=== PATIENT | female | born 1950 | race Caucasian/White ===

== ENCOUNTER 2016-09-09 07:44 | Day surgery (SDC) | payer MEDICARE, OTHER, SELFPAY ==
[~2016-09-09 07:44] MED LIST: Lactated Ringers 1,000 ML IV SCH
[2016-09-09] MEDS ORDERED: Propofol 200 MG/20 ML SDV ONE (10:03)
[2016-09-09] MEDS ORDERED: fentaNYL 100 MCG/2 ML SDV ONE (10:03)
[2016-09-09] MEDS ORDERED: Ondansetron 4 MG/2 ML SDV ONE (10:05)
[2016-09-09] MEDS ORDERED: Dexamethasone 10 MG/ML SDV ONE (10:05)
[2016-09-09 12:29] VITALS: BP 108/63
--- NOTE | 2016-09-09 13:52 | OR ---
DATE OF SURGERY: 09/09/2016. REFERRING PROVIDER: Yin Perez PA-C. PRE-OPERATIVE DIAGNOSES: 1. Positive FIT stool card. Last colonoscopy was 2005 in [place]. No known family history of colon cancer or colon polyps. 2. History of chronic constipation as well as hemorrhoids. POST-OPERATIVE DIAGNOSES: 1. An 8 mm sessile polyp at 95 cm removed with 2 passes of the hot snare. 2. Redundant colon. 3. Moderate hemorrhoids, not acutely inflamed. PROCEDURE: Colonoscopy with polypectomy x1 using hot snare. SURGEON: Gerry Domínguez M.D. ANESTHESIA: Monitored anesthesia care. BOWEL PREP: Good. DESCRIPTION OF OPERATION: Arianna is a 66-year-old female. The patient was brought to the endoscopy suite after discussing risks and benefits of the procedure. Informed consent was obtained for conscious sedation and colonoscopy with or without biopsy and/or polypectomy. We also discussed possibility of missed lesions. Pre-procedure exam was unremarkable. IV, oxygen, and monitors were placed. The patient was placed in the left lateral decubitus position. Sedation was administered and a digital rectal exam was performed and was remarkable for some external hemorrhoidal skin tags. Colonoscope was passed in the rectum slowly advanced all the way to the cecum. The patient did have redundant colon which was somewhat floppy. The cecum was viewed and photographed. The colonoscope was slowly withdrawn and the mucosa was closed observed in a direct circumferential manner. Ascending colon, near hepatic flexure was remarkable for an 8 mm sessile polyp at around 95 cm. This was removed with 2 passes of the hot snare. The transverse colon was unremarkable. Descending colon was unremarkable. Sigmoid colon was unremarkable. Retroflexion was performed. Rectal mucosa did reveal some moderate hemorrhoids internally, not acutely inflamed. Scope was removed. The patient tolerated the procedure well. The patient was monitored until that baseline status. Discharge instructions were reviewed and the patient was discharged in good condition. COMPLICATIONS: None. TOTAL TIME: 22 minutes. ESTIMATED BLOOD LOSS: None. RECOMMENDATIONS/FOLLOW-UP: We will await the results of path report to determine ideal followup interval. I will have the patient hold her aspirin for 3 days to limit any chance of bleeding. I would like to kindly thank Yin Perez PA-C for this referral. DMB: 09/09/2016 10:50:46 MODL: 09/09/2016 12:04:11 /[id number]
== END 2016-09-09 12:43 | disposition home or self-care (01) ==
LOC: VM.SDS 07:44
PROVIDERS: ATTEND Family Medicine
DX: D12.2 Benign neoplasm of ascending colon (principal); K64.8 Other hemorrhoids; Q43.8 Other specified congenital malformations of intestine; K64.4 Residual hemorrhoidal skin tags; K59.09 Other constipation; I10 Essential (primary) hypertension; I25.10 Atherosclerotic heart disease of native coronary artery without angina pectoris; E78.5 Hyperlipidemia, unspecified; K21.9 Gastro-esophageal reflux disease without esophagitis; G35 Multiple sclerosis; E78.00 Pure hypercholesterolemia, unspecified; E87.6 Hypokalemia; H61.23 Impacted cerumen, bilateral; N39.46 Mixed incontinence; Z79.899 Other long term (current) drug therapy; Z98.890 Other specified postprocedural states; Z88.8 Allergy status to other drugs, medicaments and biological substances
CPT/HCPCS: 00810; 45385; J1100; J2405; J2704; J3010; J7120; 88305

== ENCOUNTER 2017-07-07 00:43 | Observation (INO) | payer MEDICARE, OTHER ==
[2017-07-07] MEDS ORDERED: Diazepam 5 MG Tab PO ONE (01:05)
[2017-07-07] MEDS ORDERED: methylPREDNISolone Sodium Succinate 125 MG/2 ML SDV IVPUSH ONE (01:05)
[2017-07-07 02:05] LABS: CHLORIDE,CL 106 mmol/L (98-107); SODIUM,NA 130 mmol/L (136-145)
[2017-07-07] MEDS ORDERED: Potassium Chloride 20 MEQ Tab.ER PO ONE (02:06)
[2017-07-07] MEDS ORDERED: Potassium Chloride/Sodium Chloride Tab PO ONE (02:22)
[2017-07-07] MEDS ORDERED: Sodium Chloride 0.9% 1,000 ML IV SCH (02:30)
[2017-07-07] MEDS ORDERED: Diazepam 5 MG Tab PO PRN (08:09)
[2017-07-07] MEDS ORDERED: Morphine 2 MG/ML Syringe IVPUSH PRN (08:10)
[2017-07-07] MEDS ORDERED: CLONAZEPAM PO PRN (08:11)
[2017-07-07] MEDS ORDERED: Loperamide 2 MG Cap PO PRN (08:11)
[2017-07-07] MEDS ORDERED: PHYTONADIONE PO PRN (08:11)
[2017-07-07] MEDS ORDERED: Acetaminophen/Diphenhydramine 500-25 MG Tab PO PRN (08:11)
[2017-07-07] MEDS ORDERED: traMADol 50 MG Tab PO PRN (08:11)
[2017-07-07] MEDS ORDERED: Losartan 50 MG Tab (OWN SUPPLY) PO SCH (08:15)
[2017-07-07] MEDS ORDERED: VITAMIN B COMPLEX PO SCH (08:15)
[2017-07-07] MEDS ORDERED: methylPREDNISolone Sodium Succinate 40 MG/1 ML SDV IVPUSH SCH (08:15)
[2017-07-07] MEDS ORDERED: ZINC 50 MG PO SCH (08:15)
[2017-07-07] MEDS ORDERED: UBIDECARENONE PO SCH (08:15)
[2017-07-07] MEDS ORDERED: Famotidine 20 MG Tab PO SCH (08:15)
[2017-07-07] MEDS ORDERED: COD LIVER OIL PO SCH (08:15)
[2017-07-07] MEDS ORDERED: Non-Formulary Medication 1 Each (Krill Oil [Krill Oil] 500 MG) PO SCH (08:15)
--- NOTE | 2017-07-07 08:35 | EDM.PDOC ---
ED HPI GENERAL MEDICAL PROBLEM - General Chief Complaint: Lower Extremity Injury/Pain Stated Complaint: Right leg pain Time Seen by Provider: 07/07/17 00:50 Source of Information: Reports: Patient, Family History Limitations: Reports: No Limitations - History of Present Illness INITIAL COMMENTS - FREE TEXT/NARRATIVE: Patient reports that she began to have painful spasms to her right leg. She was in the bathroom transfering from the toilet to her wheelchair when she began to have them. EMS was called. She was given morphine on the way over. Saline lock is in. She denies that this has happened in the past to her. She has a long history of MS and is in a wheelchair. She has little use of her legs at this point in the disease process. She denies chest pain, headache, shortness of breath, altered level of consciousness, abdominal pain. Onset: Sudden Onset Date: 07/07/17 Onset Time: 00:00 Duration: Intermittent Location: Reports: Lower Extremity, Right Quality: Reports: Sharp, Throbbing Severity: Moderate Improves with: Reports: Heat Therapy, Medication Worsens with: Reports: Movement Associated Symptoms: Reports: No Other Symptoms Right Leg Pain Score (Numeric/FACES): 2 - Related Data Allergies Allergy/AdvReac Type Severity Reaction Status Date / Time NOEL Inhibitors Allergy Cough Verified 07/07/17 00:58 aspirin Allergy Bleeding Verified 07/07/17 00:58 Home Meds: Home Meds Acetaminophen [Tylenol Extra Strength] 1,000 mg PO BEDTIME 01/03/16 [History] Acetaminophen/Diphenhydramine [Tylenol Pm Ex-Strength Caplet] 1 tab PO BEDTIME PRN 01/03/16 [History] Ascorbic Acid [Vitamin C] 250 mg PO BID 01/03/16 [History] Baclofen [Lioresal] 20 mg PO TID 01/03/16 [History] Cholecalciferol (Vitamin D3) [Vitamin D3] 4,000 unit PO DAILY 01/03/16 [History] Cod Liver Oil 2 cap PO TID 01/03/16 [History] Famotidine [Pepcid] 20 mg PO DAILY 01/03/16 [History] Furosemide [Lasix] 80 mg PO BID 01/03/16 [History] Loperamide HCl [Imodium A-D] 2 mg PO ASDIRECTED PRN 01/03/16 [History] Losartan [Cozaar] 50 mg PO DAILY 01/03/16 [History] Naproxen Sodium [Aleve] 220 mg PO ASDIRECTED PRN 01/03/16 [History] Phytonadione [Mephyton] 10 mg PO ASDIRECTED PRN 01/03/16 [History] Potassium Chloride 20 meq PO QID 01/03/16 [History] Pravastatin Sodium 80 mg PO DAILY 01/03/16 [History] Prednisone [IJD: Prednisone] 10 mg PO DAILY 01/03/16 [History] Ubidecarenone [Co Q-10] 10 mg PO DAILY 01/03/16 [History] Zinc 50 mg PO DAILY 01/03/16 [History] clonazePAM [Clonazepam] 1.5 - 2 mg PO BEDTIME PRN 01/03/16 [History] traMADol HCl [Tramadol HCl] 50 mg PO Q6H PRN 01/03/16 [History] B1/B2/Niacin/B12/Protease [B-Complex with B-12 Tablet] 1 tab PO DAILY 07/07/17 [ History] Krill Oil 500 mg PO BID 07/07/17 [History] Non-Formulary Medication [NF Drug] 2 cap PO DAILY 07/07/17 [History] Non-Formulary Medication [NF Drug] 10 mg PO TID 07/07/17 [History] Past Medical History HEENT History: Reports: Cataract Cardiovascular History: Reports: High Cholesterol, Hypertension, Other (See Below) Other Cardiovascular History: hypokalemia Respiratory History: Reports: Other (See Below) Genitourinary History: Reports: Urinary Incontinence 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: Musculoskeletal History: Reports: Osteoporosis, Other (See Below) Other Musculoskeletal History: bursitis Neurological History: Reports: MS Psychiatric History: Reports: Other (See Below) Other Psychiatric History: sleep disorder Endocrine/Metabolic History: Reports: Diabetes, Type II - Past Surgical History HEENT Surgical History: Reports: Cataract Surgery, Tonsillectomy GI Surgical History: Reports: Cholecystectomy, Colonoscopy Musculoskeletal Surgical History: Reports: Shoulder Surgery Oncologic Surgical History: Reports: Lumpectomy Social & Family History - Tobacco Use Smoking Status *Q: Former Smoker Years of Tobacco use: 14 Used Tobacco, but Quit: Yes Month/Year Tobacco Last Used: 33 years ago - Caffeine Use Caffeine Use: Reports: Coffee, Tea - Recreational Drug Use Recreational Drug Use: No Review of Systems - Review of Systems Review Of Systems: See Below Constitutional: Reports: No Symptoms Eyes: Reports: No Symptoms Ears: Reports: No Symptoms Nose: Reports: No Symptoms Mouth/Throat: Reports: No Symptoms Respiratory: Reports: No Symptoms Cardiovascular: Reports: No Symptoms GI/Abdominal: Reports: No Symptoms Genitourinary: Reports: No Symptoms Musculoskeletal: Reports: Leg Pain Skin: Reports: No Symptoms Neurological: Reports: No Symptoms Psychiatric: Reports: No Symptoms ED EXAM, GENERAL - Physical Exam Exam: See Below Free Text/Narrative:: PLEASE USE ER NOTE FOR ADMISSION H AND P. Exam Limited By: No Limitations General Appearance: Alert, WD/WN, Moderate Distress Eye Exam: Bilateral Eye: EOMI, Normal Inspection, PERRL Ears: Normal TMs Nose: Normal Inspection, Normal Mucosa, No Blood Throat/Mouth: Normal Inspection, Normal Lips, Normal Teeth, Normal Gums, Normal Oropharynx, Normal Voice, No Airway Compromise Head: Atraumatic, Normocephalic Neck: Normal Inspection, Supple, Non-Tender, Full Range of Motion Respiratory/Chest: No Respiratory Distress, Lungs Clear, Normal Breath Sounds, No Accessory Muscle Use, Chest Non-Tender Cardiovascular: Normal Peripheral Pulses, Regular Rate, Rhythm, No Edema, No Gallop, No JVD, No Murmur, No Rub Peripheral Pulses: 2+: Posterior Tibial (L), Posterior Tibial (R), Dorsalis Pedis (L), Dorsalis Pedis (R) GI/Abdominal: Normal Bowel Sounds, Soft, Non-Tender, No Organomegaly, No Distention, No Abnormal Bruit, No Mass Back Exam: Normal Inspection, Full Range of Motion, NT Extremities: Normal Capillary Refill, Pedal Edema, Leg Pain, Limited Range of Motion, Other (right leg is tender laterally from mid quad to hip, muscles are palpably tight) Neurological: Alert, Oriented, CN II-XII Intact, Normal Cognition, Normal Gait, Normal Reflexes, No Motor/Sensory Deficits Psychiatric: Normal Affect, Normal Mood Skin Exam: Warm, Dry, Intact, Normal Color, No Rash Lymphatic: No Adenopathy Course - Vital Signs Last Recorded V/S: Last Vital Signs Temp 36.7 C 07/07/17 06:00 Pulse 79 07/07/17 06:00 Resp 18 07/07/17 06:00 BP 109/59 L 07/07/17 06:00 Pulse Ox 94 L 07/07/17 06:00 - Orders/Labs/Meds Orders: Active Orders 24 hr Category Date Time Status Patient Status [ADT] Routine ADT 07/07/17 02:29 Active Sodium Chloride 0.9% [Normal Saline] 1,000 ml Med 07/07/17 02:30 Active IV ASDIRECTED Medication Orders Acetaminophen (Tylenol Extra Strength) 1,000 mg PO BEDTIME IVAN Acetaminophen/Diphenhydramine HCl (Tylenol Pm Extra Strength) tab PO BEDTIME PRN PRN Reason: Sleep Diazepam (Valium.) 5 mg PO TID PRN PRN Reason: Muscle Spasm Famotidine (Pepcid) 20 mg PO DAILY IVAN Furosemide (Lasix) 80 mg PO BID IVAN Sodium Chloride (Normal Saline) 1,000 mls @ 50 mls/hr IV ASDIRECTED IVAN Last Admin: 07/07/17 02:45 Dose: 50 mls/hr Losartan Potassium (Cozaar) 50 mg PO DAILY IVAN Methylprednisolone Sodium Succinate (Solu-Medrol) 40 mg IVPUSH DAILY IVAN Morphine Sulfate (Morphine) 2 mg IVPUSH Q2H PRN PRN Reason: Pain Non-Formulary Medication (Ascorbic Acid [Vitamin C]) 250 mg PO BID IVAN Non-Formulary Medication (Baclofen [Lioresal]) 20 mg PO TID IVAN Non-Formulary Medication (Cholecalciferol (Vitamin D3) [Vitamin D3]) 4,000 unit PO DAILY IVAN Non-Formulary Medication (Clonazepam [Clonazepam]) 2 mg PO BEDTIME PRN PRN Reason: Sleep Non-Formulary Medication (Cod Liver Oil [Cod Liver Oil]) 1 each PO DAILY IVAN Non-Formulary Medication (Fish Oil/Dha/Epa [Fish Oil 1,200 Mg]) 2 each PO TID IVAN Non-Formulary Medication (Krill Oil [Krill Oil]) 500 mg PO BID IVAN Non-Formulary Medication (Loperamide Hcl [Imodium A-D]) 2 mg PO ASDIRECTED PRN PRN Reason: Diarrhea Non-Formulary Medication (Naproxen Sodium [Aleve]) 220 mg PO BID PRN PRN Reason: Pain Non-Formulary Medication (Phytonadione) 10 mg PO DAILY PRN PRN Reason: Pain Non-Formulary Medication (Pravastatin Sodium [Pravastatin Sodium]) 80 mg PO DAILY IVAN Non-Formulary Medication (Ubidecarenone [Co Q-10]) 10 mg PO DAILY IVAN Non-Formulary Medication (Vitamin B Complex [Vitamin B Complex]) 1 each PO DAILY IVAN Non-Formulary Medication (Zinc [Zinc]) 50 mg PO DAILY [facility] Potassium Chloride (Klor-Con M20) meq PO QID IVAN Tramadol HCl (Ultram) mg PO Q6H PRN PRN Reason: Pain Labs: Laboratory Tests 07/07/17 07/07/17 07/07/17 Range/Units 01:27 01:27 01:27 WBC 9.8 (4.0-10.0) x10^3/uL RBC 4.29 (4.00-5.50) x10^6/uL Hgb 13.7 (12.0-16.0) g/dL Hct 40.5 (33.0-47.0) % MCV 94.4 H (78.0-93.0) fL MCH 31.9 (26.0-32.0) pg MCHC 33.8 (32.0-36.0) g/dL RDW Coeff of Tayla 14.1 (10.0-15.0) % Plt Count 326 D (130-400) x10^3/uL Neut % (Auto) 36.8 L (50.0-80.0) % Lymph % (Auto) 52.5 H (25.0-50.0) % Eddy % (Auto) 8.5 (2.0-11.0) % Eos % (Auto) 1.8 (0.0-4.0) % Baso % (Auto) 0.4 (0.2-1.2) % D-Dimer, Quantitative 0.43 (<=0.58) mg/LFEU Sodium 130 L D (136-145) mmol/L Potassium 3.2 L (3.5-5.1) mmol/L Chloride 106 (98-107) mmol/L Carbon Dioxide 25 (21-32) mmol/L Anion Gap 2.2 L (10-20) mmol/L BUN 17 (7-18) mg/dL Creatinine 0.9 (0.55-1.02) mg/dL Est Cr Clr Drug Dosing 53.10 mL/min Estimated GFR (MDRD) > 60 Glucose 124 H (74-106) mg/dL Calcium 8.3 L (8.5-10.1) mg/dL Corrected Calcium 8.86 (8.5-10.1) mg/dL Phosphorus 2.6 (2.6-4.7) mg/dL Magnesium 1.9 (1.8-2.4) mg/dL Total Bilirubin 0.5 (0.2-1.0) mg/dL AST 15 (15-37) U/L ALT 27 (14-59) U/L Alkaline Phosphatase 50 (46-116) U/L C-Reactive Protein < 0.2 (<=0.9) mg/dL NT-Pro-B Natriuret Pep 38 (<=125) pg/mL Total Protein 6.2 L (6.4-8.2) g/dL Albumin 3.3 L (3.4-5.0) g/dL Globulin 2.9 Albumin/Globulin Ratio 1.14 Meds: Medications Generic Name Dose Route Start Last Admin Trade Name Freq PRN Reason Stop Dose Admin Acetaminophen 1,000 mg 07/07/17 20:00 Tylenol Extra Strength PO BEDTIME IVAN Acetaminophen/Diphenhydramine HCl tab 07/07/17 08:11 Tylenol Pm Extra Strength PO BEDTIME PRN Sleep Diazepam 5 mg 07/07/17 08:09 Valium. PO TID PRN Muscle Spasm Famotidine 20 mg 07/07/17 08:15 Pepcid PO DAILY [facility] Furosemide 80 mg 07/07/17 08:15 Lasix PO BID [facility] Sodium Chloride 1,000 mls @ 50 mls/hr 07/07/17 02:30 07/07/17 02:45 Normal Saline IV 50 mls/hr ASDIRECTED IVAN Administration Losartan Potassium 50 mg 07/07/17 08:15 Cozaar PO DAILY [facility] Methylprednisolone Sodium Succinate 40 mg 07/07/17 08:15 Solu-Medrol IVPUSH DAILY [facility] Morphine Sulfate 2 mg 07/07/17 08:10 Morphine IVPUSH Q2H PRN Pain Non-Formulary Medication 250 mg 07/07/17 08:15 Ascorbic Acid [Vitamin C] PO BID IVAN Non-Formulary Medication 20 mg 07/07/17 12:00 Baclofen [Lioresal] PO TID IVAN Non-Formulary Medication 4,000 unit 07/07/17 08:15 Cholecalciferol (Vitamin D3) [Vitamin D3] PO DAILY IVAN Non-Formulary Medication 2 mg 07/07/17 08:11 Clonazepam [Clonazepam] PO BEDTIME PRN Sleep Non-Formulary Medication 1 each 07/07/17 08:15 Cod Liver Oil [Cod Liver Oil] PO DAILY IVAN Non-Formulary Medication 2 each 07/07/17 12:00 Fish Oil/Dha/Epa [Fish Oil 1,200 Mg] PO TID IVAN Non-Formulary Medication 500 mg 07/07/17 08:15 Krill Oil [Krill Oil] PO BID IVAN Non-Formulary Medication 2 mg 07/07/17 08:11 Loperamide Hcl [Imodium A-D] PO ASDIRECTED PRN Diarrhea Non-Formulary Medication 220 mg 07/07/17 08:11 Naproxen Sodium [Aleve] PO BID PRN Pain Non-Formulary Medication 10 mg 07/07/17 08:11 Phytonadione PO DAILY PRN Pain Non-Formulary Medication 80 mg 07/07/17 08:15 Pravastatin Sodium [Pravastatin Sodium] PO DAILY IVAN Non-Formulary Medication 10 mg 07/07/17 08:15 Ubidecarenone [Co Q-10] PO DAILY IVAN Non-Formulary Medication 1 each 07/07/17 08:15 Vitamin B Complex [Vitamin B Complex] PO DAILY IVAN Non-Formulary Medication 50 mg 07/07/17 08:15 Zinc [Zinc] PO DAILY IVAN Potassium Chloride meq 07/07/17 12:00 Klor-Con M20 PO QID IVAN Tramadol HCl mg 07/07/17 08:11 Ultram PO Q6H PRN Pain Discontinued Medications Generic Name Dose Route Start Last Admin Trade Name Freq PRN Reason Stop Dose Admin Diazepam 5 mg 07/07/17 01:05 07/07/17 01:14 Valium. PO 07/07/17 01:06 5 mg ONETIME ONE Administration Methylprednisolone Sodium Succinate 125 mg 07/07/17 01:05 07/07/17 01:15 Solu-Medrol IVPUSH 07/07/17 01:06 125 mg ONETIME ONE Administration Oral Electrolytes 1 each 07/07/17 02:22 07/07/17 02:36 Thermotabs PO 07/07/17 02:23 1 each ONETIME ONE Administration Potassium Chloride 40 meq 07/07/17 02:06 07/07/17 02:10 Klor-Con M20 PO 07/07/17 02:07 40 meq ONETIME ONE Administration - Re-Assessments/Exams Free Text/Narrative Re-Assessment/Exam: 07/07/17 08:36 REview of labs shows low sodium and potassium. Patient given sodium and potassium replacements. She will be admitted for pain management, physical and occupational therapy. Departure - Departure Time of Disposition: 02:55 Disposition: Refer to Observation Condition: Good Clinical Impression: Muscle spasm of right lower extremity, Intractable pain - Discharge Information - Problem List & Annotations (1) Intractable pain SNOMED Code(s): 90684072 Code(s): R52 - PAIN, UNSPECIFIED Status: Acute Priority: Medium Current Visit: Yes Annotation/Comment:: administer IV morphine on PRN basis Physical therapy for heat treatment Occupational therapy for ADL assessment (2) Muscle spasm of right lower extremity SNOMED Code(s): 92065973, 300424830 Code(s): M62.838 - OTHER MUSCLE SPASM Status: Acute Priority: Medium Current Visit: Yes Annotation/Comment:: Administer oral valium TID for spasms Sodium and potassium replacement Hydration - Problem List Review Problem List Initiated/Reviewed/Updated: Yes - My Orders Last 24 Hours: My Active Orders 07/07/17 02:29 Patient Status [ADT] Routine 07/07/17 02:30 Sodium Chloride 0.9% [Normal Saline] 1,000 ml IV ASDIRECTED - Assessment/Plan Last 24 Hours: My Active Orders 07/07/17 02:29 Patient Status [ADT] Routine 07/07/17 02:30 Sodium Chloride 0.9% [Normal Saline] 1,000 ml IV ASDIRECTED Assessment:: right quad muscle spasms intractable pain Plan: Admit to observation 1. Muscle spasm: sodium and potassium replacement PT/OT for treatment and ADL assessment alternate heat and ice treatment stretches administer oral valium as needed 2. Intractable pain Administer IV morphine on PRN basis heat treatment Valium TID 3. Hypokalemia supplement with oral potassium - resolved 4. Hyponatremia oral supplementation - resolving 134. Up from 130
[2017-07-07] MEDS ORDERED: Cholecalciferol (Vitamin D3) 1,000 Unit Tab PO SCH (09:15)
[2017-07-07] MEDS ORDERED: Ascorbic Acid 500 MG Tab PO SCH (09:15)
[2017-07-07] MEDS ORDERED: Vitamin B Complex Tab.ER PO SCH (09:45)
[2017-07-07] MEDS ORDERED: Zinc (Zinc Gluconate) 50 MG Tab PO SCH (09:45)
[2017-07-07] MEDS: AMINOPYRIDINE PO SCH ×2 (10:05→12:23)
[2017-07-07] MEDS: Potassium Chloride 20 MEQ Tab.ER (OWN SUPPLY) PO SCH ×2 (10:05→12:22)
[2017-07-07] MEDS: Fish Oil/Omega-3 Fatty Acids 1 Gm Cap PO SCH ×2 (10:06→12:22)
[2017-07-07] MEDS: BACLOFEN PO SCH ×2 (10:06→12:23)
[2017-07-07] MEDS ORDERED: Potassium Chloride/Sodium Chloride Tab PO SCH (10:30)
--- NOTE | 2017-07-07 13:18 | PCM.DCSUM1 ---
Discharge Summary - Hospital Course Free Text/Narrative:: Patient admitted earlier this morning for observation due to pain in right leg secondary to muscular spasms. - Discharge Data Discharge Date: 07/07/17 Discharge Disposition: Home, Self-Care 01 Condition: Good - Discharge Diagnosis/Problem(s) (1) Intractable pain SNOMED Code(s): 32748418 ICD Code: R52 - PAIN, UNSPECIFIED Status: Acute Priority: Medium Current Visit: Yes Problem Details: administer IV morphine on PRN basis Physical therapy for heat treatment Occupational therapy for ADL assessment (2) Muscle spasm of right lower extremity SNOMED Code(s): 18154944, 216776291 ICD Code: M62.838 - OTHER MUSCLE SPASM Status: Acute Priority: Medium Current Visit: Yes Problem Details: Administer oral valium TID for spasms Sodium and potassium replacement Hydration - Patient Summary/Data Consults: Consultations 07/07/17 08:05 OT Evaluation and Treatment [CONS] Routine PT Evaluation and Treatment [CONS] Routine Recommended Follow-up Testing/Procedures: I recommend follow up with your primary doctor in 1 week, or sooner for ongoing symptoms. I did prescribe minimal valium and a medrol dose pack for reducing spasms and inflammation. Drink plenty of water to stay well hydrated. Use head and topical analgesics to help with the spasms and cramps. - Patient Instructions Diet: Usual Diet as Tolerated Activity: Elevate Extremity, Rest and Relax Today - Discharge Plan Prescriptions/Med Rec: Diazepam [Valium] 5 mg PO TID PRN #10 tablet PRN Reason: Muscle Spasm Home Medications: Home Meds Acetaminophen [Tylenol Extra Strength] 1,000 mg PO BEDTIME 01/03/16 [History] Acetaminophen/Diphenhydramine [Tylenol Pm Ex-Strength Caplet] 1 tab PO BEDTIME PRN 01/03/16 [History] Ascorbic Acid [Vitamin C] 250 mg PO BID 01/03/16 [History] Baclofen [Lioresal] 20 mg PO TID 01/03/16 [History] Cholecalciferol (Vitamin D3) [Vitamin D3] 4,000 unit PO DAILY 01/03/16 [History] Cod Liver Oil 1 cap PO DAILY 01/03/16 [History] Famotidine [Pepcid] 20 mg PO DAILY 01/03/16 [History] Furosemide [Lasix] 80 mg PO BID 01/03/16 [History] Loperamide HCl [Imodium A-D] 2 mg PO ASDIRECTED PRN 01/03/16 [History] Losartan [Cozaar] 50 mg PO DAILY 01/03/16 [History] Naproxen Sodium [Aleve] 220 mg PO ASDIRECTED PRN 01/03/16 [History] Phytonadione [Mephyton] 5 mg PO ASDIRECTED PRN 01/03/16 [History] Potassium Chloride 20 meq PO QID 01/03/16 [History] Pravastatin Sodium 80 mg PO DAILY 01/03/16 [History] Prednisone [IJD: Prednisone] 10 mg PO DAILY 01/03/16 [History] Ubidecarenone [Co Q-10] 10 mg PO DAILY 01/03/16 [History] Zinc 50 mg PO DAILY 01/03/16 [History] clonazePAM [Clonazepam] 1.5 - 2 mg PO BEDTIME PRN 01/03/16 [History] traMADol HCl [Tramadol HCl] 50 mg PO Q6H PRN 01/03/16 [History] B1/B2/Niacin/B12/Protease [B-Complex with B-12 Tablet] 1 tab PO DAILY 07/07/17 [ History] Diazepam [Valium] 5 mg PO TID PRN #10 tablet 07/07/17 [Rx] Non-Formulary Medication [NF Drug] 2 cap PO DAILY 07/07/17 [History] Non-Formulary Medication [NF Drug] 10 mg PO TID 07/07/17 [History] Vilonia-3/DHA/Epa/Fish Oil [Vilonia-3 Fish Oil 1,200 MG Sfgl] 2,400 mg PO TID [History] Patient Handouts: Hyponatremia, Hypokalemia Forms: ED Department Discharge Referrals: PCP,Unobtain [Primary Care Provider] - - General Info Date of Service: 07/07/17 Admission Dx/Problem (Free Text: muscle spasms, intractable pain, hypokalemia, hyponatremia Functional Status: Reports: Pain Controlled - Review of Systems General: Reports: No Symptoms HEENT: Reports: No Symptoms Pulmonary: Reports: No Symptoms Cardiovascular: Reports: No Symptoms Gastrointestinal: Reports: No Symptoms Genitourinary: Reports: No Symptoms Musculoskeletal: Reports: Leg Pain Skin: Reports: No Symptoms Neurological: Reports: No Symptoms Psychiatric: Reports: No Symptoms - Patient Data Vitals - Most Recent: Last Vital Signs Temp 36.6 C 07/07/17 09:42 Pulse 94 07/07/17 09:42 Resp 18 07/07/17 09:42 BP 108/56 L 07/07/17 10:06 Pulse Ox 92 L 07/07/17 09:42 Weight - Most Recent: 85.842 kg I&O - Last 24 hours: Intake & Output 07/06/17 07/07/17 07/07/17 22:59 06:59 14:59 Intake Total 1033 660 Output Total 850 Balance 1033 -190 Lab Results - Last 24 hrs: Laboratory Results - last 24 hr 07/07/17 07/07/17 07/07/17 Range/Units 01:27 01:27 01:27 WBC 9.8 (4.0-10.0) x10^3/uL RBC 4.29 (4.00-5.50) x10^6/uL Hgb 13.7 (12.0-16.0) g/dL Hct 40.5 (33.0-47.0) % MCV 94.4 H (78.0-93.0) fL MCH 31.9 (26.0-32.0) pg MCHC 33.8 (32.0-36.0) g/dL RDW Coeff of Tayla 14.1 (10.0-15.0) % Plt Count 326 D (130-400) x10^3/uL Neut % (Auto) 36.8 L (50.0-80.0) % Lymph % (Auto) 52.5 H (25.0-50.0) % Bates % (Auto) 8.5 (2.0-11.0) % Eos % (Auto) 1.8 (0.0-4.0) % Baso % (Auto) 0.4 (0.2-1.2) % D-Dimer, Quantitative 0.43 (<=0.58) mg/LFEU Sodium 130 L D (136-145) mmol/L Potassium 3.2 L (3.5-5.1) mmol/L Chloride 106 (98-107) mmol/L Carbon Dioxide 25 (21-32) mmol/L Anion Gap 2.2 L (10-20) mmol/L BUN 17 (7-18) mg/dL Creatinine 0.9 (0.55-1.02) mg/dL Est Cr Clr Drug Dosing 53.10 mL/min Estimated GFR (MDRD) > 60 Glucose 124 H (74-106) mg/dL Calcium 8.3 L (8.5-10.1) mg/dL Corrected Calcium 8.86 (8.5-10.1) mg/dL Phosphorus 2.6 (2.6-4.7) mg/dL Magnesium 1.9 (1.8-2.4) mg/dL Total Bilirubin 0.5 (0.2-1.0) mg/dL AST 15 (15-37) U/L ALT 27 (14-59) U/L Alkaline Phosphatase 50 (46-116) U/L C-Reactive Protein < 0.2 (<=0.9) mg/dL NT-Pro-B Natriuret Pep 38 (<=125) pg/mL Total Protein 6.2 L (6.4-8.2) g/dL Albumin 3.3 L (3.4-5.0) g/dL Globulin 2.9 Albumin/Globulin Ratio 1.14 07/07/17 07/07/17 Range/Units 08:26 08:26 WBC (4.0-10.0) x10^3/uL RBC (4.00-5.50) x10^6/uL Hgb (12.0-16.0) g/dL Hct (33.0-47.0) % MCV (78.0-93.0) fL MCH (26.0-32.0) pg MCHC (32.0-36.0) g/dL RDW Coeff of Tayla (10.0-15.0) % Plt Count (130-400) x10^3/uL Neut % (Auto) (50.0-80.0) % Lymph % (Auto) (25.0-50.0) % Bates % (Auto) (2.0-11.0) % Eos % (Auto) (0.0-4.0) % Baso % (Auto) (0.2-1.2) % D-Dimer, Quantitative (<=0.58) mg/LFEU Sodium 134 L (136-145) mmol/L Potassium 4.5 (3.5-5.1) mmol/L Chloride (98-107) mmol/L Carbon Dioxide (21-32) mmol/L Anion Gap (10-20) mmol/L BUN (7-18) mg/dL Creatinine (0.55-1.02) mg/dL Est Cr Clr Drug Dosing mL/min Estimated GFR (MDRD) Glucose (74-106) mg/dL Calcium (8.5-10.1) mg/dL Corrected Calcium (8.5-10.1) mg/dL Phosphorus (2.6-4.7) mg/dL Magnesium (1.8-2.4) mg/dL Total Bilirubin (0.2-1.0) mg/dL AST (15-37) U/L ALT (14-59) U/L Alkaline Phosphatase (46-116) U/L C-Reactive Protein (<=0.9) mg/dL NT-Pro-B Natriuret Pep (<=125) pg/mL Total Protein (6.4-8.2) g/dL Albumin (3.4-5.0) g/dL Globulin Albumin/Globulin Ratio Med Orders - Current: Current Medications Acetaminophen (Tylenol Extra Strength) 1,000 mg PO BEDTIME [facility] Acetaminophen/Diphenhydramine HCl (Tylenol Pm Extra Strength) 1 tab PO BEDTIME PRN PRN Reason: Sleep Ascorbic Acid (Vitamin C) 250 mg PO BID [facility] Last Admin: 07/07/17 10:07 Dose: 250 mg Cholecalciferol (Vitamin D3) 4,000 units PO DAILY [facility] Last Admin: 07/07/17 10:07 Dose: 4,000 units Diazepam (Valium.) 5 mg PO TID PRN PRN Reason: Muscle Spasm Famotidine (Pepcid) 20 mg PO DAILY [facility] Last Admin: 07/07/17 10:06 Dose: 20 mg Fish Oil (Fish Oil) 2 gm PO TID [facility] Last Admin: 07/07/17 12:22 Dose: 2 gm Furosemide (Lasix) 80 mg PO BIDDIURETIC [facility] Last Admin: 07/07/17 10:06 Dose: 80 mg Sodium Chloride (Normal Saline) 1,000 mls @ 50 mls/hr IV ASDIRECTED [facility] Last Admin: 07/07/17 02:45 Dose: 50 mls/hr Loperamide HCl (Imodium) 2 mg PO ASDIRECTED PRN PRN Reason: Diarrhea Losartan Potassium (Cozaar) 50 mg PO DAILY [facility] Last Admin: 07/07/17 10:06 Dose: 50 mg Methylprednisolone Sodium Succinate (Solu-Medrol) 40 mg IVPUSH DAILY [facility] Last Admin: 07/07/17 10:09 Dose: 40 mg Morphine Sulfate (Morphine) 2 mg IVPUSH Q2H PRN PRN Reason: Pain Naproxen (Naproxen Sodium) 220 mg PO BID PRN PRN Reason: Pain Baclofen [Lioresal] ((Own Supply)) 0 mg PO TID [facility] Last Admin: 07/07/17 12:23 Dose: Not Given Clonazepam [ Clonazepam] (Own Supply) 0 mg PO BEDTIME PRN PRN Reason: Sleep Cod Liver Oil [Cod Liver Oil] (Own Supply) 1 each PO DAILY [facility] Last Admin: 07/07/17 10:09 Dose: Not Given Phytonadione (Own (Supply)) 0 mg PO DAILY PRN PRN Reason: Pain Pravastatin Sodium [ Pravastatin Sodium] (Own Supply) 0 mg PO BEDTIME [facility] Ubidecarenone [Co Q- (10] (Own Supply)) 0 mg PO DAILY [facility] Last Admin: 07/07/17 10:09 Dose: Not Given 4-Aminopyridine 1 each PO TID [facility] Last Admin: 07/07/17 12:23 Dose: 1 each Oral Electrolytes (Thermotabs) 1 each PO BID [facility] Last Admin: 07/07/17 10:54 Dose: 1 each Potassium Chloride (Klor-Con M20) 20 meq PO QID [facility] Last Admin: 07/07/17 12:22 Dose: 20 meq Tramadol HCl (Ultram) 50 mg PO Q6H PRN PRN Reason: Pain Vitamin B Complex (Balanced B-50) 1 each PO DAILY [facility] Last Admin: 07/07/17 10:08 Dose: 1 each Zinc Gluconate (Zinc) 50 mg PO DAILY [facility] Last Admin: 07/07/17 10:08 Dose: 50 mg Discontinued Medications Diazepam (Valium.) 5 mg PO ONETIME ONE Stop: 07/07/17 01:06 Last Admin: 07/07/17 01:14 Dose: 5 mg Methylprednisolone Sodium Succinate (Solu-Medrol) 125 mg IVPUSH ONETIME ONE Stop: 07/07/17 01:06 Last Admin: 07/07/17 01:15 Dose: 125 mg Vitamin B Complex ( (Own Supply)) 1 each PO DAILY [facility] Last Admin: 07/07/17 10:46 Dose: Not Given Zinc 50 Mg (Own (Supply)) 0 mg PO DAILY [facility] Last Admin: 07/07/17 10:46 Dose: Not Given Oral Electrolytes (Thermotabs) 1 each PO ONETIME ONE Stop: 07/07/17 02:23 Last Admin: 07/07/17 02:36 Dose: 1 each Potassium Chloride (Klor-Con M20) 40 meq PO ONETIME ONE Stop: 07/07/17 02:07 Last Admin: 07/07/17 02:10 Dose: 40 meq - Exam General: Reports: Alert, Oriented HEENT: Reports: Pupils Equal, Pupils Reactive, EOMI, Mucous Membr. Moist/Ashley Neck: Reports: Supple Lungs: Reports: Clear to Auscultation, Normal Respiratory Effort Cardiovascular: Reports: Regular Rate, Regular Rhythm GI/Abdominal Exam: Normal Bowel Sounds, Soft, Non-Tender, No Organomegaly, No Distention, No Abnormal Bruit, No Mass, Pelvis Stable Back Exam: Reports: Normal Inspection, Full Range of Motion Extremities: Normal Inspection, Non-Tender, Normal Capillary Refill, Pedal Edema , Limited Range of Motion Skin: Reports: Warm, Dry, Intact Neurological: Reports: No New Focal Deficit Psy/Mental Status: Reports: Alert, Normal Affect, Normal Mood
[2017-07-07 13:26] VITALS: BP 107/59
[2017-07-07] MEDS ORDERED: Acetaminophen 500 MG Tab PO SCH (20:00)
[2017-07-07] MEDS ORDERED: PRAVASTATIN SODIUM PO SCH (20:00)
== END 2017-07-07 13:45 | disposition home or self-care (01) ==
LOC: VM.ED 00:43 → VM.MS 02:40
PROVIDERS: ADMIT Nurse Practitioner Family; ATTEND Nurse Practitioner Family
DX: M62.838 Other muscle spasm (principal); E87.6 Hypokalemia; E87.1 Hypo-osmolality and hyponatremia; G35 Multiple sclerosis; E78.00 Pure hypercholesterolemia, unspecified; I10 Essential (primary) hypertension; M81.0 Age-related osteoporosis without current pathological fracture; G47.9 Sleep disorder, unspecified; E11.9 Type 2 diabetes mellitus without complications; Z79.899 Other long term (current) drug therapy; Z99.3 Dependence on wheelchair; Z88.8 Allergy status to other drugs, medicaments and biological substances; Z88.6 Allergy status to analgesic agent; Z90.89 Acquired absence of other organs; Z90.49 Acquired absence of other specified parts of digestive tract; Z87.891 Personal history of nicotine dependence
CPT/HCPCS: 36415; 80053; 83735; 83880; 84100; 84132; 84295; 85025; 85379; 86140; 96374; 96376; 97161; 97165; 99284; A9270; G0378; J2920; J2930; J7030; 99235

== ENCOUNTER 2019-08-27 17:20 | Observation (INO) | payer MEDICARE ==
[2019-08-27] MEDS ORDERED: Sodium Chloride 0.9% 10 ML Syringe FLUSH PRN (17:30)
[2019-08-27] MEDS ORDERED: Ondansetron 4 MG/2 ML SDV IV PRN (17:30)
[2019-08-27] MEDS ORDERED: HYDROmorphone 1 MG/ML Syringe IVPUSH PRN (17:30)
[2019-08-27] MEDS ORDERED: Ketorolac 10 MG Tab PO ONE (17:34)
[2019-08-27] MEDS ORDERED: predniSONE 20 MG Tab PO ONE (17:42)
[2019-08-27] MEDS ORDERED: CLONAZEPAM 1 MG PO SCH (20:00)
[2019-08-27] MEDS ORDERED: MIRTAZAPINE 15 MG PO SCH (20:00)
[2019-08-27] MEDS ORDERED: GABAPENTIN 100 MG PO SCH (20:00)
--- NOTE | 2019-08-27 20:11 | HP ---
CHIEF COMPLAINT: Right elbow pain. HISTORY OF PRESENT ILLNESS: This is a 69-year-old female with known history of MS, who about 4 days ago was attempting to transfer herself when she began having more elbow pain. She relates that it is sharp, but not burning like an MS pain. X-rays done in the clinic did not reveal an acute fracture, but question some old potential chip fracture and she has not had any fever or chills. Inflammatory markers were normal. She has no history of gout. Her uric acid was just mildly elevated at 7.5. She has not had any fever or chills. Her white count was normal. Kidney function was normal. The patient does have underlying diabetes. She is on Neurontin. She takes tramadol for pain control and did sort of double up the dose on that to help with pain, but does not take any NSAIDs related to easy bruising. ALLERGIES: Include NOEL inhibitors, wheezing, bronchospasm; and aspirin causes bleeding. MEDICATION LIST: Reviewed. She takes prednisone 10 mg daily for MS, losartan 50 mg daily, Voltaren gel 2 g q.i.d., Klonopin 1.5 to 2 mg at bedtime, furosemide 80 mg daily, potassium 20 mEq 4 times a day, Remeron 15 mg at bedtime, Pravachol 80 mg daily, Neurontin 100 mg twice daily, tramadol 50 mg every 6 hours as needed for pain, baclofen 20 mg 3 times a day, fish oil, MaxiVision, zinc, coenzyme Q10, vitamin D 4000 units daily, cod liver oil, B complex, vitamin C, vitamin K 5 mg, take as needed with Aleve, Tylenol PM 25 to 500 at bedtime as needed, Pepcid 20 mg daily, Imodium p.r.n. PAST MEDICAL HISTORY: Includes colon polyps, history of shoulder bursitis bilaterally, chronic diastolic heart failure, diet-controlled diabetes, edema relieved by Edwin stockings in the past, GERD, fibrocystic breast disease, sleep disorder, used BiPAP in the past but not currently, hyperlipidemia, essential hypertension, hypokalemia, on replacement, mixed urge and stress urinary incontinence, multiple sclerosis secondary progressive since 1972, senile osteoporosis. SURGICAL HISTORY: Includes shoulder surgery on the left for bone spurs, rotator cuff bilateral x2, tonsillectomy, cholecystectomy, breast lumpectomy. SOCIAL HISTORY: The patient is . She lives at home with her . 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 Two daughters who live out of state. FAMILY HISTORY: The patient has parents who are . Her mother had diabetes. She has a brother, Tramaine, who is alive, who has a history of stroke and COPD. Brother, Kendall, . Had heart valve problems and surgery. Another brother, Lucas, who is alive. REVIEW OF SYSTEMS: General: The patient has otherwise felt well. No fever, no chills. HEENT: No sore throat. Cardiac: No chest pain. No palpitations. Respiratory: No cough. No shortness of breath. GI: No nausea, vomiting, or abdominal pain. Musculoskeletal: She has mainly had the elbow pain. Psychologic: She has not had any confusion or mood changes. Otherwise, all systems reviewed and found to be negative unless otherwise stated. PHYSICAL EXAMINATION: Vital Signs: The patient's blood pressure 136/68, temperature 97.7, pulse 80, O2 of 96% on room air. General: She is in moderate distress. she is obese. She is very uncomfortable, resting her elbow in a certain position. She is able to bend and flex the elbow actively. There is just some mild warmth, but no redness. Just some mild swelling, but no effusion. Otherwise, her hand and arm are normal. No scars or scabs. Heart: Regular rate and rhythm without murmur. Lungs: Lung sounds are clear to auscultation bilaterally without crackles or wheezes. Abdomen: Nondistended, nontender. Extremities: Warm and dry. No edema to the legs. She does have leg braces in place. Mental Status: She is alert. She is oriented x3. LABORATORY WORK: Included that CRP again normal at 0.5. Her sed rate is also normal at 6, uric 7.5. CBC: Hemoglobin is 14.7, white count 9.1, platelets 322. Lipids total 216, triglycerides 246, HDL 59, LDL 108, A1c for diabetes 5.7, so well controlled. X-ray again did not show any fracture. The official report reads soft tissue swelling in the dorsum of the elbow, but no acute osseous abnormality. Well- corticated 9 x 3 mm ossicle adjacent to the lateral epicondyle, which could represent a chronic ununited avulsed fracture or an accessory ossification center. The patient's pain was generalized in the elbow area, not just over the lateral epicondyle. ASSESSMENT: 1. Severe elbow pain related to a transfer injury, although it does not sound like a major injury. The patient is in severe pain. 2. Elevated uric acid. Cannot rule out gout, however, no effusion. 3. Multiple sclerosis, on chronic prednisone. 4. Diet-controlled diabetes. 5. Obesity. 6. Essential hypertension. 7. Reported chronic diastolic heart failure, stable without exacerbation. 8. Gastroesophageal reflux disease. PLAN: At this point, the patient is admitted for observation status. We will see if we can get her pain under control with a dose of IV Toradol and some Dilaudid p.r.n. We will also have her home tramadol available. We will get her up and working with therapies tomorrow and see if she is improved enough to go home. If she is in still severe pain, we will likely pursue a CT scan of her elbow. This was discussed with the patient. No indications for infection. For DVT prophylaxis, the patient is very likely going to be discharged within 24 hours and has a bleeding tendency, so no DVT prophylaxis was ordered. MKA: 08/27/2019 17:55:41 MODL: 08/27/2019 20:04:56 /[id number]
[2019-08-27] MEDS: Potassium Chloride 20 MEQ Tab.ER ** OWN MED PO SCH (20:29)
[2019-08-27] MEDS: BACLOFEN 20 MG PO SCH (20:29)
[2019-08-27] MEDS ORDERED: Phytonadione ORAL 2.5mg/2.5ml Soln Simple Syrup U/D PO ONE (22:00)
[2019-08-27] MEDS ORDERED: traMADol 50 MG Tab PO PRN (23:00)
[2019-08-27] MEDS: Acetaminophen/Diphenhydramine 500-25 MG Tab PO PRN (23:27)
[2019-08-27] MEDS: Diclofenac Sodium 1% Gel 100 GM Tube TOP SCH (23:29)
[2019-08-28] MEDS: Potassium Chloride 20 MEQ Tab.ER ** OWN MED PO SCH ×5 (07:49→22:04)
[2019-08-28] MEDS: AMINOPYRIDINE PO SCH ×3 (07:50→17:33)
[2019-08-28] MEDS: BACLOFEN 20 MG PO SCH ×5 (07:51→22:03)
[2019-08-28] MEDS: Diclofenac Sodium 1% Gel 100 GM Tube TOP SCH ×4 (07:53→21:37)
[2019-08-28] MEDS ORDERED: FUROSEMIDE 80 MG PO SCH ×2 (08:00)
[2019-08-28] MEDS ORDERED: PREDNISONE 10 MG PO SCH ×2 (08:00→08:29)
[2019-08-28] MEDS ORDERED: LOSARTAN 50 MG PO SCH ×2 (08:00→22:30)
[2019-08-28] MEDS ORDERED: Potassium Chloride 20 MEQ Tab.ER ** OWN MED PO SCH (08:00)
[2019-08-28] MEDS ORDERED: Loperamide 2 MG Cap PO PRN (09:35)
[2019-08-28] MEDS ORDERED: Bisacodyl 10 MG Supp RECTAL ONE (09:45)
[2019-08-28] MEDS: Zinc (Zinc Gluconate) 50 MG Tab PO SCH (10:02)
[2019-08-28] MEDS: Famotidine 20 MG Tab PO SCH (10:02)
[2019-08-28] MEDS: Cholecalciferol (Vitamin D3) 25 MCG Tab PO SCH (10:02)
[2019-08-28] MEDS: Polyethylene Glycol 3350 Powder 17 GM Packet PO SCH (10:03)
[2019-08-28] MEDS ORDERED: GABAPENTIN 100 MG PO SCH (10:30)
[2019-08-28] MEDS: HYDROmorphone 0.5 MG/0.5 ML Syringe IVPUSH PRN ×2 (12:48→15:52)
[2019-08-28] MEDS: FUROSEMIDE 80 MG PO SCH (12:57)
--- NOTE | 2019-08-28 13:24 | PN ---
Progress Note for YANICK ESCAMILLA DAILY Date: 08/28/2019 Room #: VM.204 SUBJECTIVE: This is hospital day #2 on a 69-year-old with MS, admitted with severe elbow pain. The patient only used an oral dose of Toradol last night, did not use any IV pain medications, and states her pain is under good control as long as she is not using or pushing off with the elbow. She has not had any cough or shortness of breath. She denied any burning with urination, but later the nurse mentioned that her urine was very odorous. She has chronic incontinence with her underlying MS. The patient was able to work with PT, but was unable to tolerate transfers when pushing off with the elbow. She went into severe pain and was asking for IV pain medications which she had not even taken yet. OBJECTIVE: Vital Signs: Her weight is 87.6 kg, temp 97.7, pulse 78, blood pressure 147/64, respiratory rate 17, and O2 of 98% on room air. General: She is in no acute distress. Heart: Regular rate and rhythm. S1, S2 without murmur. Lungs: Lung sounds are clear to auscultation bilaterally without crackles or wheezes. Abdomen: Positive bowel sounds. Soft, nontender. Extremities: Warm and dry. No edema or effusion over that right elbow. She has normal range of motion. She did seem to have more tenderness on the medial aspect of medial epicondyle, but some slight crepitus felt throughout the elbow and tenderness on the lateral epicondyle as well. No redness or wounds noted. ASSESSMENT: 1. Severe right elbow pain with activity, but not at rest, unknown etiology. Due to her inability to transfer, we will pursue an elbow CT. Discussed with her though unlikely to find a surgical cause for her pain given that no severe fracture showed up on the x-ray. 2. Elevated uric acid. Could not rule out gout. I did give her an additional 20 mg of prednisone yesterday. There is no effusion though to collect fluid. 3. Multiple sclerosis on prednisone 10 mg daily. 4. Type 2 diabetes, diet controlled. Blood sugars are okay even with extra Prednisone. We will continue to monitor. 5. Obesity. 6. Essential hypertension, mildly elevated on home medications. 7. Reported chronic diastolic heart failure, on Lasix and potassium supplements. Stable without exacerbation. 8. Gastroesophageal reflux disease. PLAN: At this point, the patient will continue on observation as we pursue an elbow CT. Keep her working with therapies. She states she cannot get a lift at home, they do not have room. Considerations for hospital bed and commode versus going to the [facility] for further cares due to needing assistance with ADLs and transfers. [employer] will be involved. The patient will be placed on SCDs for DVT prophylaxis. We will continue with IV Dilaudid if needed and her oral tramadol and diclofenac gel. We will hold off on further NSAIDs due to her history of bleeding. MKA: 08/28/2019 13:00:50 MODL: 08/28/2019 13:16:41 /[id number]
[2019-08-28] MEDS ORDERED: traMADol 50 MG Tab PO PRN (15:00)
--- NOTE | 2019-08-28 17:47 | CT ---
[id number] CT/CT Elbow Right W IV Exam: CT Elbow Right W IV Indication:PAIN. Comparison: Radiograph from yesterday. Discussion: Negative for acute fracture or joint effusion. No dislocation. No AVN or erosive changes. Soft tissue swelling over the dorsal aspect of the elbow, nonspecific. Correlate for signs of contusion or cellulitis. Chronic findings include osteoarthritis, intra-articular osteochondral bodies, and enthesopathy. Impression: As above. Tj Armstrong MD 08/28/19 [id number] Thank you for allowing us to participate in the care of your patient.
[2019-08-28] MEDS: GABAPENTIN 100 MG PO SCH (21:57)
[2019-08-28] MEDS: Acetaminophen/Diphenhydramine 500-25 MG Tab PO PRN (22:09)
[2019-08-28] MEDS ORDERED: MIRTAZAPINE 15 MG PO SCH (22:30)
[2019-08-28] MEDS ORDERED: CLONAZEPAM 1 MG PO SCH (22:30)
[2019-08-29] MEDS: Potassium Chloride 20 MEQ Tab.ER ** OWN MED PO SCH ×2 (07:53→12:54)
[2019-08-29] MEDS: BACLOFEN 20 MG PO SCH (07:54)
[2019-08-29] MEDS: FUROSEMIDE 80 MG PO SCH ×2 (07:55→12:55)
[2019-08-29] MEDS: AMINOPYRIDINE PO SCH ×2 (07:55→12:55)
[2019-08-29] MEDS: Diclofenac Sodium 1% Gel 100 GM Tube TOP SCH ×2 (08:01→11:17)
[2019-08-29] MEDS: Zinc (Zinc Gluconate) 50 MG Tab PO SCH (08:06)
[2019-08-29] MEDS: Famotidine 20 MG Tab PO SCH (08:06)
[2019-08-29] MEDS: Polyethylene Glycol 3350 Powder 17 GM Packet PO SCH (08:06)
[2019-08-29] MEDS: Cholecalciferol (Vitamin D3) 25 MCG Tab PO SCH (08:07)
[2019-08-29] MEDS: HYDROmorphone 0.5 MG/0.5 ML Syringe IVPUSH PRN (10:26)
[2019-08-29] MEDS: GABAPENTIN 100 MG PO SCH (10:29)
[2019-08-29 14:19] VITALS: BP 145/82; PULSE 83
--- NOTE | 2019-08-29 15:36 | PCM.DCSUM1 ---
Discharge Summary - Hospital Course Free Text/Narrative:: Patient was admitted by her primary two days ago for right elbow pain. Relies on her arms for transferring as she has multiple sclerosis and minimal use of her legs. Requiring nursing assistance for ADLs. X-ray was negative. Given continued pain they proceeded to CT. No occult fracture seen. Has some soft tissue swelling that clinically and by imaging looks like more of a contusion. She notes bruising is tracking a little bit below the elbow currently. She can extend it fully but still doesn't have much for active use of it without pain. No other focal complaints. They did a trial of PT today to see if was able to transfer her but they were unable to do this thus not recommending return to home. Thus the plan will be to swing bed self-pay and then after that probably to short-term senior living stay for some physical therapy until she regains use of the arm again that will allow return to baseline ADLs. We'll leave the Early in now given she isn't moving very much, could have this in the next week or so probably if needed. Diagnosis: Stroke: No - Discharge Data Discharge Date: 08/29/19 Discharge Disposition: DC/Tfer W/I Hosp To Swing 61 Condition: Good - Referral to Home Health Primary Care Physician: Nathalia Perez, - Patient Summary/Data Consults: Consultations 08/27/19 17:34 PT Evaluation and Treatment [CONS] Routine 08/28/19 08:28 Consult to Case Management/Returned Goods Receiving Clerk [CONS] Routine - Discharge Plan Home Medications: Home Meds Acetaminophen/Diphenhydramine [Tylenol Pm Ex-Strength Caplet] 1 tab PO BEDTIME PRN 01/03/16 [History] Ascorbic Acid [Vitamin C] 250 mg PO BID 01/03/16 [History] Baclofen [Lioresal] 20 mg PO TID 01/03/16 [History] Cholecalciferol (Vitamin D3) [Vitamin D3] 4,000 unit PO DAILY 01/03/16 [History] Cod Liver Oil 1 cap PO DAILY 01/03/16 [History] Famotidine [Pepcid] 20 mg PO DAILY 01/03/16 [History] Furosemide [Lasix] 80 mg PO BID 01/03/16 [History] Loperamide HCl [Imodium A-D] 2 mg PO ASDIRECTED PRN 01/03/16 [History] Losartan [Cozaar] 50 mg PO DAILY 01/03/16 [History] Phytonadione [Mephyton] 5 mg PO ASDIRECTED PRN 01/03/16 [History] Potassium Chloride 20 meq PO QID 01/03/16 [History] Pravastatin Sodium 80 mg PO DAILY 01/03/16 [History] Prednisone [IJD: Prednisone] 10 mg PO DAILY 01/03/16 [History] Ubidecarenone [Co Q-10] 10 mg PO DAILY 01/03/16 [History] Zinc 50 mg PO DAILY 01/03/16 [History] clonazePAM [Clonazepam] 2 tab PO BEDTIME 01/03/16 [History] traMADol HCl [Tramadol HCl] 50 mg PO Q6H PRN 01/03/16 [History] B1/B2/Niacin/B12/Protease [B-Complex with B-12 Tablet] 1 tab PO DAILY 07/07/17 [History] Non-Formulary Medication [NF Drug] 2 cap PO BID 07/07/17 [History] Non-Formulary Medication [NF Drug] 10 mg PO TID 07/07/17 [History] [place]-3/DHA/Epa/Fish Oil [[place]-3 Fish Oil 1,200 MG Sfgl] 1,200 mg PO TID 07/07 [History] Gabapentin [Neurontin] 100 mg PO BID 11/19/17 [History] Mirtazapine 15 mg PO BEDTIME 11/19/17 [History] Diclofenac Sodium [Voltaren 1% Gel] 2 gm TOP QID 08/27/19 [History] - Discharge Summary/Plan Comment DC Time >30 min.: No - Patient Data Vitals - Most Recent: Last Vital Signs Temp 36.6 C 08/29/19 14:00 Pulse 83 08/29/19 14:00 Resp 16 08/29/19 14:00 BP 145/82 H 08/29/19 14:00 Pulse Ox 97 08/29/19 14:00 Weight - Most Recent: 87.226 kg I&O - Last 24 hours: Intake & Output 08/29/19 08/29/19 08/29/19 06:59 14:59 22:59 Intake Total 720 Output Total 1571 7357 Balance -1545 -1170 Lab Results - Last 24 hrs: Laboratory Results - last 24 hr 08/28/19 08/28/19 08/29/19 Range/Units 17:27 21:33 06:04 POC Glucose 117 H 133 H 104 (74-106) mg/dL 08/29/19 Range/Units 11:01 POC Glucose 138 H (74-106) mg/dL Med Orders - Current: Current Medications Discontinued Medications Acetaminophen/Diphenhydramine HCl (Tylenol Pm Extra Strength) 1 tab PO BEDTIME PRN PRN Reason: Sleep Last Admin: 08/28/19 22:09 Dose: 1 tab Documented by: Bisacodyl (Dulcolax) 10 mg RECTAL ONETIME ONE Stop: 08/28/19 09:46 Last Admin: 08/28/19 10:03 Dose: 10 mg Documented by: Cholecalciferol (Vitamin D3) 100 mcg PO DAILY [facility] Last Admin: 08/29/19 08:07 Dose: 100 mcg Documented by: Diclofenac Sodium (Voltaren 1% Gel) 2 gm TOP QID [facility] Last Admin: 08/29/19 11:17 Dose: 1 applic Documented by: Famotidine (Pepcid) 20 mg PO DAILY [facility] Last Admin: 08/29/19 08:06 Dose: 20 mg Documented by: Furosemide (Lasix) 80 mg PO BIDDIURETIC [facility] Last Admin: 08/28/19 12:55 Dose: 80 mg Documented by: Furosemide (Lasix) 80 mg PO BID@0800,1300 [facility] Last Admin: 08/28/19 07:48 Dose: 80 mg Documented by: Furosemide (Lasix) 80 mg PO BID@0800,1300 [facility] Last Admin: 08/29/19 12:55 Dose: 80 mg Documented by: Gabapentin (Neurontin) 100 mg PO BID [facility] Last Admin: 08/27/19 22:30 Dose: 100 mg Documented by: Gabapentin (Neurontin) 100 mg PO BID@1030,2230 [facility] Last Admin: 08/28/19 10:32 Dose: 100 mg Documented by: Gabapentin (Neurontin) 100 mg PO BID@1030,2230 [facility] Last Admin: 08/29/19 10:29 Dose: 100 mg Documented by: Hydromorphone HCl (Dilaudid) 0.5 mg IVPUSH Q2H PRN PRN Reason: Pain (severe 7-10) Hydromorphone HCl (Dilaudid) 0.5 mg IVPUSH Q2H PRN PRN Reason: Pain (severe 7-10) Last Admin: 08/29/19 10:26 Dose: 0.5 mg Documented by: Ketorolac Tromethamine (Toradol) 10 mg PO ONETIME ONE Stop: 08/27/19 17:35 Last Admin: 08/27/19 18:09 Dose: 10 mg Documented by: Loperamide HCl (Imodium) 2 mg PO ASDIRECTED PRN PRN Reason: Diarrhea Losartan Potassium (Cozaar) 50 mg PO DAILY [facility] Losartan Potassium (Cozaar) 50 mg PO DAILY@2229 [facility] Last Admin: 08/28/19 21:53 Dose: 50 mg Documented by: Mirtazapine (Remeron) 15 mg PO BEDTIME [facility] Last Admin: 08/27/19 22:30 Dose: 15 mg Documented by: Mirtazapine (Remeron) 15 mg PO DAILY@2229 [facility] Last Admin: 08/28/19 21:58 Dose: 15 mg Documented by: Baclofen [Lioresal] (20mg Own Med ) 20 mg PO TID [facility] Last Admin: 08/27/19 20:29 Dose: 20 mg Documented by: Clonazepam 1mg Tab ( Own Med ) 1.5 - 2 tab PO BEDTIME [facility] Last Admin: 08/27/19 22:30 Dose: 2 tab Documented by: Aminopyridine 10mg (Cap Own Med ) 1 each PO TID@0800,1300,1800 [facility] Last Admin: 08/29/19 12:55 Dose: 1 each Documented by: Clonazepam 1mg Tab ( Own Med ) 1.5 - 2 tab PO Q24H [facility] Last Admin: 08/28/19 21:52 Dose: 2 tab Documented by: Baclofen [Lioresal] (20mg Own Med ) 20 mg PO TID@0800,1800,0 [facility] Last Admin: 08/29/19 07:54 Dose: 20 mg Documented by: Ondansetron HCl (Zofran) 4 mg IV Q4H PRN PRN Reason: Nausea/Vomiting Phytonadione (Aquamephyton) 5 mg PO ONETIME ONE Stop: 08/27/19 22:01 Last Admin: 08/27/19 22:30 Dose: 5 mg Documented by: Polyethylene Glycol (Miralax) 17 gm PO DAILY [facility] Last Admin: 08/29/19 08:06 Dose: 17 gm Documented by: Potassium Chloride (Klor-Con M20) 20 meq PO QID [facility] Last Admin: 08/28/19 12:47 Dose: 20 meq Documented by: Potassium Chloride (Klor-Con M20) 20 meq PO 0800,1300,1800,2230 [facility] Last Admin: 08/28/19 08:39 Dose: Not Given Documented by: Potassium Chloride (Klor-Con M20) 20 meq PO 0800,1300,1800,2230 [facility] Last Admin: 08/28/19 12:50 Dose: 20 meq Documented by: Potassium Chloride (Klor-Con M20) 20 meq PO 0800,1300,1800,2230 [facility] Last Admin: 08/29/19 12:54 Dose: 20 meq Documented by: Prednisone (Prednisone) 20 mg PO ONETIME ONE Stop: 08/27/19 17:43 Last Admin: 08/27/19 18:10 Dose: 20 mg Documented by: Prednisone (Prednisone) 10 mg PO DAILY [facility] Last Admin: 08/28/19 07:50 Dose: 10 mg Documented by: Prednisone (Prednisone) 10 mg PO DAILY [facility] Last Admin: 08/29/19 07:58 Dose: 10 mg Documented by: Senna/Docusate Sodium (Senna Plus) 2 tab PO BID [facility] Last Admin: 08/29/19 08:06 Dose: 2 tab Documented by: Sodium Chloride (Saline Flush) 10 ml FLUSH ASDIRECTED PRN PRN Reason: Keep Vein Open Tramadol HCl (Ultram) 50 mg PO Q6H PRN PRN Reason: Pain (moderate 4-6) Last Admin: 08/28/19 10:24 Dose: 50 mg Documented by: Tramadol HCl (Ultram) 50 mg PO Q6H PRN PRN Reason: Pain (moderate 4-6) Last Admin: 08/29/19 12:45 Dose: 50 mg Documented by: Zinc Gluconate (Zinc) 50 mg PO DAILY [facility] Last Admin: 08/29/19 08:06 Dose: 50 mg Documented by:
== END 2019-08-29 14:20 | disposition swing bed (61) ==
LOC: VM.MS 17:36
PROVIDERS: ADMIT Internal Medicine; ATTEND Internal Medicine
DX: M25.521 Pain in right elbow (principal); G35 Multiple sclerosis; R79.89 Other specified abnormal findings of blood chemistry; E11.9 Type 2 diabetes mellitus without complications; K21.9 Gastro-esophageal reflux disease without esophagitis; M81.0 Age-related osteoporosis without current pathological fracture; I11.0 Hypertensive heart disease with heart failure; I50.32 Chronic diastolic (congestive) heart failure; E78.5 Hyperlipidemia, unspecified; E66.9 Obesity, unspecified; Z88.8 Allergy status to other drugs, medicaments and biological substances; Z88.6 Allergy status to analgesic agent; Z79.899 Other long term (current) drug therapy; Z68.31 Body mass index [BMI] 31.0-31.9, adult
CPT/HCPCS: 51702; 73201-RT; 82962; 96374; 96376; 97162-GP; 97530-GP; A9270-GY; G0378; G0379; J1170; J7512

== ENCOUNTER 2019-08-29 13:32 | Inpatient (IN) | payer MEDICARE, OTHER ==
--- NOTE | 2019-08-29 15:39 | PCM.HP.2 ---
H&P History of Present Illness - General Date of Service: 08/29/19 Admit Problem/Dx: Admission Diagnosis/Problem Admission Diagnosis/Problem Chronic pain - History of Present Illness Initial Comments - Free Text/Narative: Patient was admitted by her primary two days ago for right elbow pain. Relies on her arms for transferring as she has multiple sclerosis and minimal use of her legs. Requiring nursing assistance for ADLs. X-ray was negative. Given continued pain they proceeded to CT. No occult fracture seen. Has some soft tissue swelling that clinically and by imaging looks like more of a contusion. She notes bruising is tracking a little bit below the elbow currently. She can extend it fully but still doesn't have much for active use of it without pain. No other focal complaints. They did a trial of PT today to see if was able to transfer her but they were unable to do this thus not recommending return to home. Thus the plan will be to swing bed self-pay and then after that probably to short-term [facility] stay for some physical therapy until she regains use of the arm again that will allow return to baseline ADLs. We'll leave the Early in now given she isn't moving very much, could have this in the next week or so probably if needed. - Related Data Allergies/Adverse Reactions: Allergies Allergy/AdvReac Type Severity Reaction Status Date / Time NOEL Inhibitors AdvReac Cough Verified 08/28/19 13:49 aspirin AdvReac Bleeding Verified 08/28/19 13:49 Home Medications: Home Meds Acetaminophen/Diphenhydramine [Tylenol Pm Ex-Strength Caplet] 1 tab PO BEDTIME PRN 01/03/16 [History] Ascorbic Acid [Vitamin C] 250 mg PO BID 01/03/16 [History] Baclofen [Lioresal] 20 mg PO TID 01/03/16 [History] Cholecalciferol (Vitamin D3) [Vitamin D3] 4,000 unit PO DAILY 01/03/16 [History] Cod Liver Oil 1 cap PO DAILY 01/03/16 [History] Famotidine [Pepcid] 20 mg PO DAILY 01/03/16 [History] Furosemide [Lasix] 80 mg PO BID 01/03/16 [History] Loperamide HCl [Imodium A-D] 2 mg PO ASDIRECTED PRN 01/03/16 [History] Losartan [Cozaar] 50 mg PO DAILY 01/03/16 [History] Phytonadione [Mephyton] 5 mg PO ASDIRECTED PRN 01/03/16 [History] Potassium Chloride 20 meq PO QID 01/03/16 [History] Pravastatin Sodium 80 mg PO DAILY 01/03/16 [History] Prednisone [IJD: Prednisone] 10 mg PO DAILY 01/03/16 [History] Ubidecarenone [Co Q-10] 10 mg PO DAILY 01/03/16 [History] Zinc 50 mg PO DAILY 01/03/16 [History] clonazePAM [Clonazepam] 2 tab PO BEDTIME 01/03/16 [History] traMADol HCl [Tramadol HCl] 50 mg PO Q6H PRN 01/03/16 [History] B1/B2/Niacin/B12/Protease [B-Complex with B-12 Tablet] 1 tab PO DAILY 07/07/17 [History] Non-Formulary Medication [NF Drug] 2 cap PO BID 07/07/17 [History] Non-Formulary Medication [NF Drug] 10 mg PO TID 07/07/17 [History] [place]-3/DHA/Epa/Fish Oil [[place]-3 Fish Oil 1,200 MG Sfgl] 1,200 mg PO TID 07/07/17 [History] Gabapentin [Neurontin] 100 mg PO BID 11/19/17 [History] Mirtazapine 15 mg PO BEDTIME 11/19/17 [History] Diclofenac Sodium [Voltaren 1% Gel] 2 gm TOP QID 08/27/19 [History] Past Medical History HEENT History: Reports: Cataract, Macular Degeneration Cardiovascular History: Reports: High Cholesterol, Hypertension, Other (See Below) Other Cardiovascular History: hypokalemia Respiratory History: Reports: Other (See Below) Genitourinary History: Reports: Urinary Incontinence 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: Musculoskeletal History: Reports: Other (See Below) Other Musculoskeletal History: bursitis Neurological History: Reports: MS Psychiatric History: Reports: Other (See Below) Other Psychiatric History: sleep disorder Endocrine/Metabolic History: Reports: Diabetes, Type II, Osteopenia Immunologic History: Reports: None - Past Surgical History HEENT Surgical History: Reports: Cataract Surgery, Tonsillectomy Respiratory Surgical History: Reports: None GI Surgical History: Reports: Cholecystectomy, Colonoscopy Female Surgical History: Reports: Other (See Below) Other Female Surgeries/Procedures: Fibrocystic breast desease Musculoskeletal Surgical History: Reports: Shoulder Surgery Oncologic Surgical History: Reports: Lumpectomy Social & Family History - Family History Family Medical History: Noncontributory - Tobacco Use Smoking Status *Q: Unknown Ever Smoked Used Tobacco, but Quit: No Second Hand Smoke Exposure: No - Caffeine Use Caffeine Use: Reports: None - Recreational Drug Use Recreational Drug Use: No H&P Review of Systems - Review of Systems: Review Of Systems: See Below Exam - Exam Exam: See Below - Vital Signs Vital Signs: Last Vital Signs Temp 36.6 C 08/29/19 14:02 Pulse 83 08/29/19 14:02 Resp 16 08/29/19 14:02 BP 145/82 H 08/29/19 14:02 Pulse Ox 97 08/29/19 14:02 Weight: 86.092 kg Sepsis Event Note - Evaluation Sepsis Screening Result: No Definite Risk - Focused Exam Vital Signs: Vital Signs Temp Pulse Resp BP Pulse Ox 08/29/19 14:02 36.6 C 83 16 145/82 H 97 Date Exam was Performed: 08/29/19 Time Exam was Performed: 15:38 Problem List Initiated/Reviewed/Updated: Yes Orders Last 24hrs: Active Orders 24 hr Category Date Time Status Patient Status [ADT] Routine ADT 08/29/19 14:02 Active Oxygen Therapy [RC] PRN Care 08/29/19 14:02 Active VTE/DVT Education [RC] PER UNIT ROUTINE Care 08/29/19 14:02 Active Vital Signs [RC] PER UNIT ROUTINE Care 08/29/19 14:02 Active Resuscitation Status Routine Resus Stat 08/29/19 14:02 Ordered
[2019-08-29] MEDS ORDERED: Acetaminophen/Diphenhydramine 500-25 MG Tab PO PRN (15:40)
[2019-08-29] MEDS ORDERED: PHYTONADIONE 5 MG PO PRN (15:40)
[2019-08-29] MEDS ORDERED: Morphine 2 MG/ML SYRINGE IM PRN (15:42)
[2019-08-29] MEDS ORDERED: Loperamide 2 MG Cap PO PRN (15:51)
[2019-08-29] MEDS ORDERED: traMADol 50 MG Tab PO PRN (16:03)
[2019-08-29] MEDS: Diclofenac Sodium 1% Gel 100 GM Tube TOP SCH ×2 (16:48→20:34)
[2019-08-29] MEDS: Potassium Chloride 20 MEQ Tab.ER (OWN SUPPLY) PO SCH ×2 (18:08→20:33)
[2019-08-29] MEDS: AMINOPYRIDINE PO SCH (18:12)
[2019-08-29] MEDS ORDERED: MIRTAZAPINE 15 MG PO SCH (20:00)
[2019-08-29] MEDS ORDERED: CLONAZEPAM 1 MG PO SCH (20:00)
[2019-08-29] MEDS: Ascorbic Acid 500 MG Tab PO SCH (20:27)
[2019-08-29] MEDS: Fish Oil/Omega-3 Fatty Acids 1 Gm Cap PO SCH (20:27)
[2019-08-29] MEDS: Gabapentin 100 MG Cap (OWN SUPPLY) PO SCH (20:28)
[2019-08-29] MEDS: BACLOFEN 20 MG PO SCH (20:31)
[2019-08-29] MEDS: FUROSEMIDE 80 MG PO SCH (20:32)
[2019-08-30] MEDS: Gabapentin 100 MG Cap (OWN SUPPLY) PO SCH (07:56)
[2019-08-30] MEDS ORDERED: Losartan 50 MG Tab (OWN SUPPLY) PO SCH (08:00)
[2019-08-30] MEDS ORDERED: Cholecalciferol (Vitamin D3) 25 MCG Tab PO SCH (08:00)
[2019-08-30] MEDS ORDERED: COD LIVER OIL PO SCH (08:00)
[2019-08-30] MEDS ORDERED: Famotidine 20 MG Tab PO SCH (08:00)
[2019-08-30] MEDS ORDERED: PREDNISONE 10 MG PO SCH (08:00)
[2019-08-30] MEDS ORDERED: Vitamin B Complex Tab PO SCH (08:00)
[2019-08-30] MEDS ORDERED: PRAVASTATIN 80 MG PO SCH (08:00)
[2019-08-30] MEDS ORDERED: UBIDECARENONE 10 MG PO SCH (08:00)
[2019-08-30] MEDS: Fish Oil/Omega-3 Fatty Acids 1 Gm Cap PO SCH ×2 (08:02→11:54)
[2019-08-30] MEDS: Ascorbic Acid 500 MG Tab PO SCH (08:03)
[2019-08-30] MEDS: BACLOFEN 20 MG PO SCH ×2 (08:09→11:55)
[2019-08-30] MEDS: Potassium Chloride 20 MEQ Tab.ER (OWN SUPPLY) PO SCH ×2 (08:10→11:54)
[2019-08-30] MEDS: FUROSEMIDE 80 MG PO SCH (08:10)
[2019-08-30] MEDS: AMINOPYRIDINE PO SCH ×2 (08:11→12:00)
[2019-08-30] MEDS: Diclofenac Sodium 1% Gel 100 GM Tube TOP SCH ×2 (08:13→11:55)
[2019-08-30] MEDS ORDERED: Bisacodyl 10 MG Supp RECTAL ONE (08:17)
[2019-08-30] MEDS ORDERED: LACTULOSE 10 GM/15 ML PO SCH (08:30)
[2019-08-30] MEDS ORDERED: UBIDECARENONE 100 MG PO SCH (08:30)
[2019-08-30] MEDS ORDERED: Zinc (Zinc Gluconate) 50 MG Tab PO SCH (08:45)
[2019-08-30] MEDS ORDERED: Acetaminophen/HYDROcodone 325-5 MG Tab (OWN SUPPLY) PO PRN (09:05)
[2019-08-30] MEDS ORDERED: Bisacodyl 10 MG Supp RECTAL PRN (09:05)
[2019-08-30 10:28] VITALS: BP 138/70; PULSE 103
--- NOTE | 2019-08-30 22:47 | DISCH ---
DATE OF ADMISSION TO OBSERVATION: 08/09/2019 DATE OF DISCHARGE to swing bed: 08/29/2019 DATE OF DISCHARGE FROM OBSERVATION: 08/30/2019 PRIMARY DISCHARGE DIAGNOSES: 1. Severe elbow pain with bruising, but no fracture identified on x-rays or CT scanning. 2. Underlying multiple sclerosis with leg weakness. 3. Urinary retention probably due to pain pills along with multiple sclerosis. Early catheter in place. 4. Constipation. 5. Diet-controlled diabetes. 6. Essential hypertension. 7. Chronic diastolic heart failure. 8. Hyperlipidemia. 9. Hypokalemia. 10.Mixed urinary incontinence. REASON FOR ADMISSION: On the date of admission, this 69-year-old female came into the clinic to be evaluated for elbow pain. She had lab work and x-rays. Uric acid mildly elevated at 7.5, but everything else looked okay. About 4 days prior to her visit, she was extending her arms to help with a transfer and had a sudden sharp pain. The patient was able to bend and move the arm, but could not put any pressure on it. She is chronically on 10 mg daily of prednisone for MS. Her injury date was 08/23/2019. The patient had no fever or chills. No lab work other than blood sugars was repeated in the hospital and all was acceptable. The patient was managed with oral Toradol on her first night, so she did get some vitamin K. Then, the second day, did get a couple doses of IV Dilaudid after working with PT, but after this no further IV medication was needed and oral hydrocodone was started in addition to her home tramadol which she takes but not on a routine basis at home. The patient was evaluated by Therapy and it was felt she could not transfer at home with her . She would need a lift. They did not have room for a lift in her home. Therefore, decision was made to transition over to [facility] to see if her pain improves over the next several weeks. The patient had a little bit of redness on her second hospital day; however, the bruising did not really start until the . She was also using Voltaren gel and ice for the pain. PHYSICAL EXAMINATION: Discharging Vitals: Included temperature 97.6, pulse 103, blood pressure 138/70, respiratory rate 17, and O2 of 94% on room air. General: She is in no acute distress. Heart: Regular rate and rhythm. S1, S2 without murmur. Lungs: Lung sounds are clear to auscultation bilaterally without crackles or wheezes. Abdomen: Has positive bowel sounds. Mildly distended, but nontender. Extremities: Warm and dry. No edema. : Early in place. Mental Status: Alert and oriented x3. Musculoskeletal: Right arm and elbow have normal range of motion. She has some tenderness over that medial side above and below the antecubital space with bruising in both areas as well. The patient did have a small bowel movement here despite suppository. She does have a history of constipation at home. She was continued on her home medications. DISCHARGE PLANS AND INSTRUCTIONS: She will go over to [facility] for further PT and OT to work on transfers. We also discussed trying to get more devices like lifts in her home. She will be on hydrocodone for pain control along with her tramadol. She will have ice to the elbow and the Voltaren. No followup lab work due. We will keep the Early in place due to her retention. The patient states she would even like to leave this in for up to a week at home until she is moving better. We will just see how she does, but right now there are no plans to remove the Early for at least 2 weeks. I will see her when due on next snf rounds. COVID testing negative. Greater than 30 minutes spent on the snf discharge. MKA: 08/30/2019 15:14:02 MODL: 08/30/2019 22:42:34 /[id number] MTDD
== END 2019-08-30 14:00 | DRG 556 ==
LOC: VM.MS 14:02
PROVIDERS: ADMIT Family Medicine; ATTEND Family Medicine
DX: M25.521 Pain in right elbow (principal); I50.32 Chronic diastolic (congestive) heart failure; G35 Multiple sclerosis; R29.898 Other symptoms and signs involving the musculoskeletal system; G89.29 Other chronic pain; R33.8 Other retention of urine; K59.00 Constipation, unspecified; E11.9 Type 2 diabetes mellitus without complications; I11.0 Hypertensive heart disease with heart failure; E78.5 Hyperlipidemia, unspecified; E78.00 Pure hypercholesterolemia, unspecified; M85.80 Other specified disorders of bone density and structure, unspecified site; E87.6 Hypokalemia; N39.46 Mixed incontinence; Z88.8 Allergy status to other drugs, medicaments and biological substances; Z88.6 Allergy status to analgesic agent; Z79.52 Long term (current) use of systemic steroids; Z79.899 Other long term (current) drug therapy; Z98.49 Cataract extraction status, unspecified eye; Z11.59 Encounter for screening for other viral diseases
CPT/HCPCS: 82962; A9270-GY; J7512; U0002

== ENCOUNTER 2021-10-19 14:29 | Emergency (ER) | payer MEDICARE, OTHER ==
[2021-10-19 15:46] VITALS: BP 141/84; PULSE 95
== END 2021-10-19 16:38 | disposition home or self-care (01) ==
LOC: VM.ED 14:29
DX: T83.098A Other mechanical complication of other urinary catheter, initial encounter (principal); E78.00 Pure hypercholesterolemia, unspecified; I10 Essential (primary) hypertension; E11.9 Type 2 diabetes mellitus without complications; Z88.8 Allergy status to other drugs, medicaments and biological substances; Z79.899 Other long term (current) drug therapy
CPT/HCPCS: 51702; 99283

== ENCOUNTER 2022-07-12 00:20 | Observation (INO) | payer MEDICARE, OTHER ==
[2022-07-12 00:57] LABS: BASOPHILS PERCENT AUTO 0.4 % (0.2-1.2); EOSINOPHILS ABSOLUTE AUTO 0.2 x10^3/uL (0.0-0.5); EOSINOPHILS PERCENT AUTO 2.6 % (0.0-4.0); HEMATOCRIT 42.7 % (33.0-47.0); HEMOGLOBIN 14.5 g/dL (12.0-16.0); IMMATURE GRAN ABSOLUTE AUTO 0.03 x10^3/uL (0.00-0.07); LYMPHOCYTES ABSOLUTE AUTO 3.3 x10^3/uL (1.0-4.8); LYMPHOCYTES PERCENT AUTO 40.7 % (25.0-50.0); MEAN CORPUSCULAR HEMOGLOBIN 31.1 pg (26.0-32.0); MEAN CORPUSCULAR VOLUME 91.6 fL (78.0-93.0); MONOCYTES ABSOLUTE AUTO 0.6 x10^3/uL (0.0-0.8); MONOCYTES PERCENT AUTO 7.5 % (2.0-11.0); NEUTROPHILS ABSOLUTE AUTO 3.9 x10^3/uL (1.8-7.7); NEUTROPHILS PERCENT AUTO 48.4 % (50.0-80.0); PLATELET COUNT,PLT 261 x10^3/uL (130-400); RED BLOOD CELL COUNT 4.66 x10^6/uL (4.00-5.50); WHITE BLOOD CELL COUNT,WBC 8.1 x10^3/uL (4.0-10.0)
[2022-07-12 00:57] LABS: APPEARANCE,URINE CLEAR (CLEAR); BILIRUBIN,URINE NEGATIVE (NEGATIVE); COLOR,URINE LIGHT YELLOW (YELLOW); GLUCOSE,URINE NEGATIVE (NEGATIVE); KETONES,URINE NEGATIVE (NEGATIVE); LEUKOCYTE ESTERASE,URINE TRACE (NEGATIVE); NITRITE,URINE NEGATIVE (NEGATIVE); OCCULT BLOOD,URINE NEGATIVE (NEGATIVE); PROTEIN,URINE NEGATIVE (NEGATIVE); UROBILINOGEN,URINE 0.2 EU/dL (0.2)
[2022-07-12 01:06] LABS: BACTERIA,URINE RARE /HPF (NOT SEEN); MUCUS,URINE NOT SEEN /LPF (NOT SEEN); RBC,URINE 0-5 /HPF (NOT SEEN); SQUAMOUS EPITHELIAL CELLS,UR RARE /HPF (NOT SEEN)
[2022-07-12 01:11] LABS: A/G RATIO 1.17; ALANINE AMINOTRANSFERASE,ALT 29 U/L (14-59); ALBUMIN 3.4 g/dL (3.4-5.0); ALKALINE PHOSPHATASE 51 U/L (46-116); ANION GAP 15.5 mmol/L (5-15); ASPARTATE AMNIOTRANSFERASE,AST 22 U/L (15-37); BILIRUBIN TOTAL 0.9 mg/dL (0.2-1.0); BLOOD UREA NITROGEN,BUN 14 mg/dL (7-18); C-REACTIVE PROTEIN < 0.2 mg/dL (<=0.9); CALCIUM 8.9 mg/dL (8.5-10.1); CARBON DIOXIDE,CO2 27 mmol/L (21-32); CHLORIDE,CL 105 mmol/L (98-107); CREATININE 0.8 mg/dL (0.55-1.02); ESTIMATED GFR 79 mL/min (>=60); GLUCOSE RANDOM 128 mg/dL (70-99); MAGNESIUM 1.8 mg/dL (1.8-2.4); POTASSIUM,K 3.5 mmol/L (3.5-5.1); PROTEIN TOTAL,TP 6.3 g/dL (6.4-8.2); SODIUM,NA 144 mmol/L (136-145)
[2022-07-12] MEDS ORDERED: Acetaminophen/HYDROcodone 325-5 MG Tab PO ONE (02:08)
[2022-07-12] MEDS ORDERED: Acetaminophen/Diphenhydramine 500-25 MG Tab PO PRN (04:46)
[2022-07-12] MEDS ORDERED: CETIRIZINE 5 MG PO PRN (04:46)
[2022-07-12] MEDS ORDERED: Acetaminophen/HYDROcodone 325-5 MG Tab PO PRN (04:46)
[2022-07-12] MEDS ORDERED: metFORMIN 500 MG Tab PO SCH (09:00)
[2022-07-12] MEDS ORDERED: Ascorbic Acid 500 MG Tab PO SCH (09:00)
[2022-07-12] MEDS ORDERED: Famotidine 20 MG Tab PO SCH (09:00)
[2022-07-12] MEDS ORDERED: Losartan 50 MG Tab PO SCH (09:00)
[2022-07-12] MEDS ORDERED: ASCORBIC ACID 250 MG PO SCH (09:00)
[2022-07-12] MEDS ORDERED: COD LIVER OIL PO SCH (09:00)
[2022-07-12] MEDS ORDERED: CHOLECALCIFEROL 4000 UNIT PO SCH (09:00)
[2022-07-12] MEDS ORDERED: Furosemide 80 MG Tab PO SCH ×2 (09:00)
[2022-07-12] MEDS ORDERED: Non-Formulary Medication 1 Each (Metformin Hcl [Metformin Hcl Er] 500 MG Tab.Er.24h) PO SCH (09:00)
[2022-07-12] MEDS ORDERED: Potassium Chloride 20 MEQ Tab.ER PO SCH (09:00)
[2022-07-12] MEDS ORDERED: Non-Formulary Medication 1 Each (Omega-3/Dha/Epa/Fish Oil [Omega-3 Fish Oil 1,200 Mg Sfgl] PO SCH (09:00)
[2022-07-12] MEDS ORDERED: Baclofen 10 MG Tab PO SCH (09:00)
[2022-07-12] MEDS ORDERED: Non-Formulary Medication 1 Each (Zinc [Zinc] 50 MG Tablet) PO SCH (09:00)
[2022-07-12] MEDS ORDERED: [UNRECOGNIZED DRUG - OTHER] PO SCH (09:00)
[2022-07-12] MEDS ORDERED: Zinc Sulfate 220 MG Cap PO SCH (09:00)
[2022-07-12] MEDS ORDERED: Gabapentin 100 MG Cap PO SCH (09:00)
[2022-07-12] MEDS ORDERED: predniSONE 10 MG Tab PO SCH (09:00)
[2022-07-12] MEDS ORDERED: Diclofenac Sodium 1% Gel 100 GM Tube TOP SCH (09:00)
[2022-07-12] MEDS ORDERED: BACLOFEN 20 MG PO SCH (09:00)
[2022-07-12] MEDS ORDERED: Loratadine 10 MG Tab PO PRN (09:05)
[2022-07-12] MEDS ORDERED: UBIDECARENONE 10 MG PO SCH (09:08)
[2022-07-12] MEDS ORDERED: Fish Oil/Omega-3 Fatty Acids 1 Gm Cap PO SCH (09:15)
[2022-07-12] MEDS ORDERED: Vitamin B Complex Tab PO SCH (09:15)
[2022-07-12 09:40] VITALS: BP 114/66
[2022-07-12 12:07] VITALS: PULSE 97
[2022-07-12] MEDS ORDERED: Mirtazapine 15 MG Tab PO SCH (21:00)
[2022-07-12] MEDS ORDERED: ClonazePAM 0.5 MG Tab PO SCH (21:00)
[2022-07-13] MEDS ORDERED: Pravastatin 20 MG Tab PO SCH (09:00)
[2022-07-13] MEDS ORDERED: Cholecalciferol (Vitamin D3) 25 MCG Tab PO SCH (09:00)
== END 2022-07-12 11:00 | disposition home or self-care (01) ==
LOC: VM.ED 00:20 → VM.MS 01:45
PROVIDERS: ADMIT Physician Assistant; ATTEND Physician Assistant
DX: S09.90XA Unspecified injury of head, initial encounter (principal); R53.1 Weakness; E78.00 Pure hypercholesterolemia, unspecified; I10 Essential (primary) hypertension; E11.9 Type 2 diabetes mellitus without complications; M85.80 Other specified disorders of bone density and structure, unspecified site; Z79.899 Other long term (current) drug therapy; Z79.52 Long term (current) use of systemic steroids; Z88.8 Allergy status to other drugs, medicaments and biological substances; W18.30XA Fall on same level, unspecified, initial encounter; Y92.009 Unspecified place in unspecified non-institutional (private) residence as the place of occurrence of the external cause
CPT/HCPCS: 36415; 70450; 71045; 72125; 80053; 81001; 82947; 83735; 85025; 86140; 87086; 87088; 87186; 99285; A9270-GY; G0378; J7512

== ENCOUNTER 2022-10-21 06:46 | Day surgery (SDC) | payer MEDICARE, OTHER ==
[2022-10-21] MEDS ORDERED: Lactated Ringers 1,000 ML IV SCH (07:00)
[2022-10-21] MEDS ORDERED: fentaNYL 100 MCG/2 ML SDV ONE (08:19)
[2022-10-21] MEDS ORDERED: Propofol 200 MG/20 ML SDV ONE (08:19)
[2022-10-21 09:42] VITALS: BP 121/59; PULSE 77
== END 2022-10-21 10:15 | disposition home or self-care (01) ==
LOC: VM.SDS 06:46
PROVIDERS: ATTEND Family Medicine
DX: D12.0 Benign neoplasm of cecum (principal); Z12.11 Encounter for screening for malignant neoplasm of colon; I10 Essential (primary) hypertension; E78.00 Pure hypercholesterolemia, unspecified; G35 Multiple sclerosis; I50.9 Heart failure, unspecified; I11.0 Hypertensive heart disease with heart failure; M81.8 Other osteoporosis without current pathological fracture; K21.9 Gastro-esophageal reflux disease without esophagitis; E11.42 Type 2 diabetes mellitus with diabetic polyneuropathy; G47.00 Insomnia, unspecified; Z90.49 Acquired absence of other specified parts of digestive tract; Z86.010 Personal history of colon polyps; Z98.890 Other specified postprocedural states; Z79.84 Long term (current) use of oral hypoglycemic drugs; Z79.899 Other long term (current) drug therapy; Z88.8 Allergy status to other drugs, medicaments and biological substances; V00.811A Fall from moving wheelchair (powered), initial encounter; Z79.82 Long term (current) use of aspirin
CPT/HCPCS: 00812; 45380; 82947; 88305; J2704; J3010; J7120

== ENCOUNTER 2023-03-01 09:34 | Inpatient (IN) | payer MEDICARE, OTHER ==
[2023-03-01 10:39] LABS: BASOPHILS PERCENT AUTO 0.2 % (0.2-1.2); EOSINOPHILS ABSOLUTE AUTO 0.3 x10^3/uL (0.0-0.5); EOSINOPHILS PERCENT AUTO 2.1 % (0.0-4.0); HEMATOCRIT 35.8 % (33.0-47.0); HEMOGLOBIN 11.5 g/dL (12.0-16.0); IMMATURE GRAN ABSOLUTE AUTO 0.05 x10^3/uL (0.00-0.07); LYMPHOCYTES ABSOLUTE AUTO 2.1 x10^3/uL (1.0-4.8); LYMPHOCYTES PERCENT AUTO 13.5 % (25.0-50.0); MEAN CORPUSCULAR HEMOGLOBIN 30.8 pg (26.0-32.0); MEAN CORPUSCULAR HGB CONC 32.1 g/dL (32.0-36.0); MONOCYTES ABSOLUTE AUTO 0.8 x10^3/uL (0.0-0.8); MONOCYTES PERCENT AUTO 5.1 % (2.0-11.0); NEUTROPHILS ABSOLUTE AUTO 12.5 x10^3/uL (1.8-7.7); NEUTROPHILS PERCENT AUTO 78.8 % (50.0-80.0); PLATELET COUNT,PLT 312 x10^3/uL (130-400); RED BLOOD CELL COUNT 3.73 x10^6/uL (4.00-5.50); WHITE BLOOD CELL COUNT,WBC 15.8 x10^3/uL (4.0-10.0)
[2023-03-01 10:52] LABS: APPEARANCE,URINE CLOUDY (CLEAR); BILIRUBIN,URINE NEGATIVE (NEGATIVE); COLOR,URINE YELLOW (YELLOW); GLUCOSE,URINE NEGATIVE (NEGATIVE); KETONES,URINE NEGATIVE (NEGATIVE); LEUKOCYTE ESTERASE,URINE MODERATE (NEGATIVE); NITRITE,URINE NEGATIVE (NEGATIVE); OCCULT BLOOD,URINE NEGATIVE (NEGATIVE); PH,URINE 6.5 (5.0-8.0); PROTEIN,URINE NEGATIVE (NEGATIVE); UROBILINOGEN,URINE 0.2 EU/dL (0.2)
[2023-03-01 10:59] LABS: A/G RATIO 0.56; ALANINE AMINOTRANSFERASE,ALT 35 U/L (14-59); ALBUMIN 2.2 g/dL (3.4-5.0); ALKALINE PHOSPHATASE 73 U/L (46-116); ASPARTATE AMNIOTRANSFERASE,AST 24 U/L (15-37); BILIRUBIN TOTAL 0.6 mg/dL (0.2-1.0); BLOOD UREA NITROGEN,BUN 25 mg/dL (7-18); CALCIUM 9.1 mg/dL (8.5-10.1); CARBON DIOXIDE,CO2 28 mmol/L (21-32); CHLORIDE,CL 103 mmol/L (98-107); CREATININE 1.4 mg/dL (0.55-1.02); GLUCOSE RANDOM 125 mg/dL (70-99); POTASSIUM,K 3.8 mmol/L (3.5-5.1); PROTEIN TOTAL,TP 6.1 g/dL (6.4-8.2); SODIUM,NA 141 mmol/L (136-145)
[2023-03-01 11:03] LABS: ANION GAP 13.8 mmol/L (5-15); ESTIMATED GFR 40 mL/min (>=60)
[2023-03-01 11:09] LABS: AMORPHOUS SEDIMENT,URINE FEW; BACTERIA,URINE FEW /HPF (NOT SEEN); HYALINE CASTS,URINE FEW; MUCUS,URINE RARE /LPF (NOT SEEN); RBC,URINE 0-5 /HPF (NOT SEEN); SQUAMOUS EPITHELIAL CELLS,UR FEW /HPF (NOT SEEN)
[2023-03-01 11:11] LABS: C-REACTIVE PROTEIN 72.32 mg/dL (<=0.50)
[2023-03-01] MEDS ORDERED: cefTRIAXone 1 GM Vial IVPUSH ONE (11:31)
[2023-03-01 12:13] LABS: CORONAVIRUS COVID-19 NAA NEGATIVE (NEGATIVE); INFLUENZA A NAA NEGATIVE (NEGATIVE); INFLUENZA B NAA NEGATIVE (NEGATIVE); RESPIRATORY SYNCYTIAL VIR NAA NEGATIVE (NEGATIVE)
[2023-03-01] MEDS ORDERED: Acetaminophen/Diphenhydramine 500-25 MG Tab PO PRN (13:13)
[2023-03-01] MEDS ORDERED: Polyethylene Glycol 3350 Powder 17 GM Packet PO PRN (13:13)
[2023-03-01] MEDS ORDERED: Diclofenac Sodium 1% Gel 100 GM Tube TOP PRN (13:13)
[2023-03-01] MEDS ORDERED: Acetaminophen/HYDROcodone 325-5 MG Tab PO PRN (13:13)
[2023-03-01] MEDS ORDERED: Loratadine 10 MG Tab PO PRN (13:13)
[2023-03-01] MEDS ORDERED: Sennosides/Docusate Sodium 50-8.6 MG Tab PO PRN (13:13)
[2023-03-01] MEDS ORDERED: Furosemide 80 MG Tab PO SCH (14:00)
[2023-03-01] MEDS: Nystatin Crm 30 GM Tube TOP SCH ×2 (14:08→21:59)
[2023-03-01] MEDS: methylPREDNISolone Sodium Succinate 40 MG/1 ML SDV IVPUSH SCH ×2 (14:25→21:57)
[2023-03-01] MEDS: NS with KCl 40mEq 1,000 ML IV SCH ×2 (14:41→23:06)
[2023-03-01] MEDS: [UNRECOGNIZED DRUG - OTHER] PO SCH ×2 (15:10→17:47)
[2023-03-01] MEDS: Baclofen 10 MG Tab PO SCH ×2 (15:10→21:57)
[2023-03-01] MEDS: Potassium Chloride 20 MEQ Tab.ER PO SCH ×2 (17:46→21:59)
[2023-03-01] MEDS ORDERED: Enoxaparin 40 MG/0.4 ML Syringe SUBCUT SCH (20:00)
[2023-03-01] MEDS ORDERED: guaiFENesin/Dextromethorphan 100-10 MG/5 ML Soln 10 ML Cup PO PRN (20:42)
[2023-03-01] MEDS ORDERED: Mirtazapine 15 MG Tab PO SCH (21:00)
[2023-03-01] MEDS ORDERED: ClonazePAM 0.5 MG Tab PO SCH (21:00)
[2023-03-01] MEDS: Fish Oil/Omega-3 Fatty Acids 1 Gm Cap PO SCH (21:56)
[2023-03-01] MEDS: Beta-Carotene (Vitamin A) w/Vitamin C & E plus Minerals Tab PO SCH (21:57)
[2023-03-01] MEDS: Gabapentin 100 MG Cap PO SCH (21:57)
[2023-03-02] MEDS: methylPREDNISolone Sodium Succinate 40 MG/1 ML SDV IVPUSH SCH (05:30)
[2023-03-02 07:05] LABS: BASOPHILS PERCENT AUTO 0.1 % (0.2-1.2); HEMATOCRIT 35.2 % (33.0-47.0); HEMOGLOBIN 11.5 g/dL (12.0-16.0); LYMPHOCYTES ABSOLUTE AUTO 1.2 x10^3/uL (1.0-4.8); MEAN CORPUSCULAR HEMOGLOBIN 30.7 pg (26.0-32.0); MEAN CORPUSCULAR HGB CONC 32.7 g/dL (32.0-36.0); MEAN CORPUSCULAR VOLUME 94.1 fL (78.0-93.0); MONOCYTES ABSOLUTE AUTO 0.6 x10^3/uL (0.0-0.8); MONOCYTES PERCENT AUTO 3.4 % (2.0-11.0); NEUTROPHILS ABSOLUTE AUTO 16.6 x10^3/uL (1.8-7.7); NEUTROPHILS PERCENT AUTO 89.5 % (50.0-80.0); PLATELET COUNT,PLT 336 x10^3/uL (130-400); RED BLOOD CELL COUNT 3.74 x10^6/uL (4.00-5.50); WHITE BLOOD CELL COUNT,WBC 18.5 x10^3/uL (4.0-10.0)
[2023-03-02] MEDS: NS with KCl 40mEq 1,000 ML IV SCH (07:15)
[2023-03-02 07:19] LABS: LYMPHOCYTES PERCENT AUTO 6.5 % (25.0-50.0)
[2023-03-02 07:25] LABS: A/G RATIO 0.48; ALBUMIN 1.9 g/dL (3.4-5.0); BILIRUBIN TOTAL 0.3 mg/dL (0.2-1.0); CALCIUM 8.9 mg/dL (8.5-10.1); CREATININE 1.2 mg/dL (0.55-1.02); EST CRCL DRUG DOSING (CG) 38.69 mL/min; POTASSIUM,K 5.4 mmol/L (3.5-5.1); PROTEIN TOTAL,TP 5.9 g/dL (6.4-8.2)
[2023-03-02 07:27] LABS: ANION GAP 14.4 mmol/L (5-15)
[2023-03-02 07:39] LABS: C-REACTIVE PROTEIN 49.35 mg/dL (<=0.50)
[2023-03-02] MEDS ORDERED: Glucagon,Human Recombinant 1 MG Vial IM PRN ×2 (08:28→08:29)
[2023-03-02] MEDS ORDERED: 50% Dextrose in Water 50 ML Syringe IVPUSH PRN ×2 (08:28→08:29)
[2023-03-02] MEDS ORDERED: Insulin Glarg,Human.Rec.Analog 100 Unit/ML 10 ML Vial SUBCUT SCH (08:28)
[2023-03-02] MEDS ORDERED: Piperacillin/Tazobactam 3.375 GM in Sodium Chloride 0.9% 100 ML IV SCH (08:30)
[2023-03-02] MEDS ORDERED: metFORMIN 500 MG Tab PO SCH (09:00)
[2023-03-02] MEDS ORDERED: Cholecalciferol (Vitamin D3) 25 MCG Tab PO SCH (09:00)
[2023-03-02] MEDS ORDERED: Pravastatin 20 MG Tab PO SCH (09:00)
[2023-03-02] MEDS ORDERED: cefTRIAXone 1 GM Vial IVPUSH SCH (09:00)
[2023-03-02] MEDS ORDERED: Piperacillin/Tazobactam 4.5 GM in Sodium Chloride 0.9% 100 ML IV ONE (09:00)
[2023-03-02] MEDS ORDERED: predniSONE 10 MG Tab PO SCH (09:00)
[2023-03-02] MEDS ORDERED: Zinc Sulfate 220 MG Cap PO SCH (09:00)
[2023-03-02] MEDS ORDERED: Fenofibrate,Micronized 134 MG Cap PO SCH (09:00)
[2023-03-02] MEDS ORDERED: COD LIVER OIL PO SCH (09:00)
[2023-03-02] MEDS ORDERED: Losartan 50 MG Tab PO SCH (09:00)
[2023-03-02] MEDS ORDERED: Famotidine 20 MG Tab PO SCH (09:00)
[2023-03-02] MEDS ORDERED: Ascorbic Acid 500 MG Tab PO SCH (09:00)
[2023-03-02] MEDS ORDERED: Vitamin B Complex Tab PO SCH (09:00)
[2023-03-02] MEDS ORDERED: Iopamidol 612 MG/ML 100 ML Bottle IVPUSH ONE (09:16)
[2023-03-02] MEDS: Gabapentin 100 MG Cap PO SCH (09:57)
[2023-03-02] MEDS: [UNRECOGNIZED DRUG - OTHER] PO SCH ×3 (09:57→18:24)
[2023-03-02] MEDS: Baclofen 10 MG Tab PO SCH ×2 (09:58→12:44)
[2023-03-02] MEDS: Beta-Carotene (Vitamin A) w/Vitamin C & E plus Minerals Tab PO SCH (09:58)
[2023-03-02] MEDS: Fish Oil/Omega-3 Fatty Acids 1 Gm Cap PO SCH (09:59)
[2023-03-02] MEDS: Nystatin Crm 30 GM Tube TOP SCH (10:02)
[2023-03-02] MEDS: Insulin Lispro 100 Units/ML 3 ML Vial SUBCUT SCH ×2 (12:44→18:25)
[2023-03-02] MEDS ORDERED: Furosemide 20 MG/2 ML VIAL IV ONE (15:16)
[2023-03-02] MEDS ORDERED: Piperacillin/Tazobactam 4.5 GM in Sodium Chloride 0.9% 100 ML IV SCH (17:00)
[2023-03-02 18:47] VITALS: BP 149/73; PULSE 108
[2023-03-03] MEDS ORDERED: Polyethylene Glycol 3350 Powder 17 GM Packet PO SCH (09:00)
== END 2023-03-02 19:40 | disposition short-term general hospital (02) | DRG 871 ==
LOC: VM.ED 09:34 → VM.MS 11:51
PROVIDERS: ADMIT Family Medicine; ATTEND Family Medicine
DX: A41.9 Sepsis, unspecified organism (principal); L89.324 Pressure ulcer of left buttock, stage 4; I50.32 Chronic diastolic (congestive) heart failure; L89.321 Pressure ulcer of left buttock, stage 1; L03.317 Cellulitis of buttock; E44.0 Moderate protein-calorie malnutrition; N17.9 Acute kidney failure, unspecified; Z66 Do not resuscitate; G47.00 Insomnia, unspecified; N39.0 Urinary tract infection, site not specified; E11.42 Type 2 diabetes mellitus with diabetic polyneuropathy; E11.65 Type 2 diabetes mellitus with hyperglycemia; E78.5 Hyperlipidemia, unspecified; E87.5 Hyperkalemia; K21.9 Gastro-esophageal reflux disease without esophagitis; I11.0 Hypertensive heart disease with heart failure; B37.2 Candidiasis of skin and nail; G35 Multiple sclerosis; I50.9 Heart failure, unspecified; G47.33 Obstructive sleep apnea (adult) (pediatric); E78.00 Pure hypercholesterolemia, unspecified; Z88.8 Allergy status to other drugs, medicaments and biological substances; E11.9 Type 2 diabetes mellitus without complications; E66.9 Obesity, unspecified; Z88.6 Allergy status to analgesic agent; Z87.891 Personal history of nicotine dependence; Z90.89 Acquired absence of other organs; Z98.890 Other specified postprocedural states; Z79.899 Other long term (current) drug therapy; Z79.84 Long term (current) use of oral hypoglycemic drugs; Z90.49 Acquired absence of other specified parts of digestive tract; Z68.34 Body mass index [BMI] 34.0-34.9, adult
CPT/HCPCS: 0241U; 36415; 71045; 72193; 80053; 81001; 82947; 83605; 84132; 84145; 85025; 85652; 86140; 87040; 87070; 87086; 87088; 87186; 99285; A9270-GY; J0696; J1650; J1815-GY; J1940; J2543; J2920; J3480; J3490; J7512; Q9967